=== PATIENT | male | born 1945 | race Caucasian/White ===

== ENCOUNTER 2023-11-29 10:07 | Inpatient (IN) | payer OTHER, SELFPAY ==
[2023-11-29] VITALS (25 sets, daily range): BP systolic 86–136; BP diastolic 55–86; BMI 29.9
--- NOTE | 2023-11-29 07:48 | ED.GENMED ---
History of Present Illness
<Farida Montiel PA-C - Last Filed: 11/29/23 09:18>
General
Chief Complaint: Chest Pain
Source: patient and ambulance crew
Time Seen by Provider: 11/29/23 07:47
History of Present Illness
History of Present Illness:
78yoM with a history of coronary artery disease s/p PCI, ischemic cardiomyopathy, hypertension, and hyperlipidemia presenting via EMS for evaluation of chest pain. Patient started with chest pain about 1 week ago. He reports intermittent central
chest pains which feel like a 'sharp annoying pain.' The pain lasts about 5-10 minutes at a time. The pain seems to occur after eating or if walking up the steps. The pain typically improves with Gas-X. The pain is non-radiating. This morning his
pain occurred while he was sitting and watching TV so he called EMS. He has no chest pain currently. Patient also reports exertional dyspnea which has been ongoing for a while. He is otherwise asymptomatic and denies any fevers, cough, dizziness,
syncope, diaphoresis, nausea, vomiting. He took 324mg of aspirin prior to arrival. Of note, patient had a minimally invasive lumbar decompression procedure 9 days ago.
Past History
<Farida Montiel PA-C - Last Filed: 11/29/23 09:18>
Past History
ED Past Medical History: CAD, HTN, Hypercholesterolemia, [place] and Other (Cardiomyopathy, IBS, cardiomyopathy, left frontal branch block)
ED Past Surgical History: Orthopedic and Other (Cardiac catheter 05/2013)
Social History
Tobacco: Former smoker
Alcohol: None
Drug: None
Family History
Family History: CAD
Phy Exam
<Farida Montiel PA-C - Last Filed: 11/29/23 09:18>
General Physical Exam
General Presentation: well appearing and no apparent distress
General age: appears stated age
General Skin: warm and dry
General Habitus: normal
General Mental: alert
Cardiovascular Exam
Cardiovascular Exam: regular rate/rhythm and no edema
Pulmonary Exam
Pulmonary Exam: lungs clear, no respiratory distress, no rales, no crackles and no wheezing
Philip Coma Scale
Eye Opening: Spontaneous
Verbal Response: Oriented
Motor Response: Obeys Commands
GCS Total Score: 15
Skin Exam
Skin Exam: normal color and warm/dry
Psychiatric Exam
Psychiatric Exam: normal mood/affect
Scores
<Farida Montiel PA-C - Last Filed: 11/29/23 09:18>
Heart Score for Chest Pain Patients
STEMI patient?: Not applicable
Course
<Farida Montiel PA-C - Last Filed: 11/29/23 09:18>
Orders/Labs/Results
Orders:
Orders
11/29/23 07:42
Electrocardiogram (*1) Urgent
Reason for Study: Chest Pain
EKG- Treatment ONCE
11/29/23 07:49
Cardiac Monitoring- Treatment ONCE
CR Chest - 2 Views Urgent
Comment:
Reason For Exam: CP
11/29/23 07:55
CMP [Comprehensive Metabolic Panel] Urgent
Complete Blood Count/With Diff Urgent
D-Dimer Urgent
Lipase Urgent
Troponin I Urgent
11/29/23 08:09
Add On- LAB Urgent
Tests Added?: Lipase
11/29/23 09:11
Heparin 4,000 units IV NOW STA
Pharmacy Request to Place See Dose Instructions PO NOW STA
Discontinue all Active Warfarin orders?: Yes
11/29/23 09:12
PTT Urgent
Comment: Obtain baseline before beginning heparin infusion if not already collected
Nursing to Place Non Medication Order As Directed
Physician Order: PTT 6 hours after initial start of Heparin infusion
11/29/23 09:15
Heparin 20372 Units/250 ml 25,000 units in 250 ml IV PER PROTOCOL
Weight to be used for heparin protocol in kilograms (kg):: 97.1
Protocol:: Cardiac Tx/Acute Coronary
PTT Goal Range to be used:: PTT 73 to 111 seconds
Order type:: Initial
INITIAL Infusion Dose (UNITS/KG/hr) & then follow protocol:: 12 units/kg/hr
Infusion Dose in UNITS/hr & then follow protocol (UNITS/hr):: 1,000
INFUSION RATE in mL/hr & then follow protocol (mL/hr):: 10
PTT less than or equal to 64 seconds:: Increase rate by 200 units/hr (+ 2 mL/hr)
PTT 64.1 to 72.9 seconds:: Increase rate by 100 units/hr (+ 1 mL/hr)
PTT 73 to 111 seconds:: Target Range. No change in rate.
PTT 111.1 to 130.9 seconds:: Decrease rate by 100 units/hr (- 1 mL/hr)
PTT 131 to 199.9 seconds:: HOLD for 1 hr. Then decrease rate by 200 units/hr (- 2 mL/hr)
PTT greater than or equal to 200 seconds:: HOLD for 2 hrs & Notify Provider. Then decrease by 200 units/hr (-
2 mL/hr)
Lab follow-up:: Each change, PTT q6h until 2 consecutive are therapeutic. Then PTT
daily.
11/29/23 10:[address] See Dose Instructions IV DIRECTED
Abnormal Lab Results
11/29/23
07:55
RBC 3.86 L 10^6/uL
(4.70-6.10)
Hct 38.1 L %
(39.0-52.0)
MCV 98.7 H fL
(80.0-94.0)
MCH 35.0 H pg
(27.0-31.0)
Abs Immat Gran (auto) 0.1 H 10^3/uL
(0-0.05)
Absolute Monos (auto) 1.0 H 10^3/uL
(0.1-0.6)
Immature Gran % 0.8 H %
(0-0.5)
Monocytes % 12.5 H %
(1.7-9.3)
Sodium 134 L mmol/L
(135-145)
Glucose 126 H mg/dl
(70-99)
ALT 92 H U/L
(0-50)
Troponin I 0.098 H* ng/ml
Total Protein 6.0 L g/dl
(6.3-8.2)
11/29/23 07:55
11/29/23 07:55
Vital Signs
Initial and Last Documented VS:
Initial Vital Signs
Pulse Resp BP Pulse Ox
69 16 107/66 94
11/29/23 07:43 11/29/23 07:43 11/29/23 07:43 11/29/23 07:43
Last Documented Vital Signs
Pulse Resp BP Pulse Ox
63 14 107/66 98
11/29/23 08:30 11/29/23 08:30 11/29/23 07:43 11/29/23 08:30
<Dewayne Yo MD - Last Filed: 11/29/23 09:15>
Orders/Labs/Results
Orders:
Orders
11/29/23 07:42
Electrocardiogram (*1) Urgent
Reason for Study: Chest Pain
EKG- Treatment ONCE
11/29/23 07:49
Cardiac Monitoring- Treatment ONCE
CR Chest - 2 Views Urgent
Comment:
Reason For Exam: CP
11/29/23 07:55
CMP [Comprehensive Metabolic Panel] Urgent
Complete Blood Count/With Diff Urgent
D-Dimer Urgent
Lipase Urgent
Troponin I Urgent
11/29/23 08:09
Add On- LAB Urgent
Tests Added?: Lipase
11/29/23 09:11
Heparin 4,000 units IV NOW STA
Pharmacy Request to Place See Dose Instructions PO NOW STA
Discontinue all Active Warfarin orders?: Yes
11/29/23 09:12
PTT Urgent
Comment: Obtain baseline before beginning heparin infusion if not already collected
Nursing to Place Non Medication Order As Directed
Physician Order: PTT 6 hours after initial start of Heparin infusion
11/29/23 09:15
Heparin [id number] Units/250 ml 25,000 units in 250 ml IV PER PROTOCOL
Weight to be used for heparin protocol in kilograms (kg):: 97.1
Protocol:: Cardiac Tx/Acute Coronary
PTT Goal Range to be used:: PTT 73 to 111 seconds
Order type:: Initial
INITIAL Infusion Dose (UNITS/KG/hr) & then follow protocol:: 12 units/kg/hr
Infusion Dose in UNITS/hr & then follow protocol (UNITS/hr):: 1,000
INFUSION RATE in mL/hr & then follow protocol (mL/hr):: 10
PTT less than or equal to 64 seconds:: Increase rate by 200 units/hr (+ 2 mL/hr)
PTT 64.1 to 72.9 seconds:: Increase rate by 100 units/hr (+ 1 mL/hr)
PTT 73 to 111 seconds:: Target Range. No change in rate.
PTT 111.1 to 130.9 seconds:: Decrease rate by 100 units/hr (- 1 mL/hr)
PTT 131 to 199.9 seconds:: HOLD for 1 hr. Then decrease rate by 200 units/hr (- 2 mL/hr)
PTT greater than or equal to 200 seconds:: HOLD for 2 hrs & Notify Provider. Then decrease by 200 units/hr (-
2 mL/hr)
Lab follow-up:: Each change, PTT q6h until 2 consecutive are therapeutic. Then PTT
daily.
11/29/23 10:[address] See Dose Instructions IV DIRECTED
Abnormal Lab Results
11/29/23
07:55
RBC 3.86 L 10^6/uL
(4.70-6.10)
Hct 38.1 L %
(39.0-52.0)
MCV 98.7 H fL
(80.0-94.0)
MCH 35.0 H pg
(27.0-31.0)
Abs Immat Gran (auto) 0.1 H 10^3/uL
(0-0.05)
Absolute Monos (auto) 1.0 H 10^3/uL
(0.1-0.6)
Immature Gran % 0.8 H %
(0-0.5)
Monocytes % 12.5 H %
(1.7-9.3)
Sodium 134 L mmol/L
(135-145)
Glucose 126 H mg/dl
(70-99)
ALT 92 H U/L
(0-50)
Troponin I 0.098 H* ng/ml
Total Protein 6.0 L g/dl
(6.3-8.2)
11/29/23 07:55
11/29/23 07:55
Vital Signs
Initial and Last Documented VS:
Initial Vital Signs
Pulse Resp BP Pulse Ox
69 16 107/66 94
11/29/23 07:43 11/29/23 07:43 11/29/23 07:43 11/29/23 07:43
Last Documented Vital Signs
Pulse Resp BP Pulse Ox
63 14 107/66 98
11/29/23 08:30 11/29/23 08:30 11/29/23 07:43 11/29/23 08:30
Ashleylt;Farida Montiel PA-C - Last Filed: 11/29/23 09:18>
MDM/Problems Addressed
Differential Diagnosis Includes:
78yoM here with intermittent central chest pain x 5 days. No pain on arrival. Otherwise asymptomatic on arrival. Hx of CAD s/p PCI. He is hemodynamically stable and well appearing. Exam is reassuring. Differential diagnosis includes but is not
limited to: ACS, angina, arrhythmia, pneumonia, PE, esophagitis, GERD
Initial ED place: Place on [facility]. Check cardiac labs, D-dimer, EKG, and CXR.
<Farida Montiel PA-C - Last Filed: 11/29/23 09:18>
*EKG
Interpreted by ED Provider?: Yes
EKG Intrepretation Date: 11/29/23
EKG Intrepretation Time: 07:53
Heart Rate: 67
Rate: normal
Rhythm: sinus
[place]: left axis deviation (Unchanged from prior)
QRS Pattern: left bundle branch block
Ischemia: no ischemia
*Critical Care Note
Total Time (30-74mins, 75-104mins- exclusive of procedures): Not Applicable
<Farida Montiel PA-C - Last Filed: 11/29/23 09:18>
Update Note
Update Note:
EKG shows NSR with a LBBB which was also present on prior EKG. Troponin 0.098. D-dimer normal and CXR is clear. Heparin gtt ordered and workforce planner, Dr. Thomas, notified of patient. Patient admitted for further evaluation and management.
ED Attending Note
<Farida Montiel PA-C - Last Filed: 11/29/23 09:18>
-
Portions of this chart may have been created with voice recognition software.� Occasional wrong word or��sound alike� substitutions may have occurred due to the inherent limitations of voice recognition software.
<Dewayne Yo MD - Last Filed: 11/29/23 09:15>
ED Attending Note
Patient seen and examined by attending physician: Yes
ED Attending Note:
Patient with history of CAD, with most recent cardiac stent placement in 2020, presents to ED secondary to intermittent chest pain over the past 3 days. Chest pain described as sharp, in the middle of chest, nonradiating, without any alleviating or
exacerbating factors. Patient has taken aspirin prior to arrival. At the time of evaluation ED, patient states that his chest pain is resolved completely. Denies fever or chills. Denies recent travel or surgery. Denies recent change in
medications or diet. Patient states that his chest pain is similar to what he experienced in 2020.
Physical Exam
General: no apparent distress, not acutely ill
Neck: supple. no meningeal signs. normal psoterior pharynx
Heart: s1/s2 regular rate and rhythm, no murmur. equal radial pulses.
Lungs: no acute respiratory distress. clear bilaterally
Abdomen: normal bowel sounds. not tender. no CVAT
Neuro: alert and oriented. no focal neurological deficits
Skin: no rash
Psychiatric: well kept. interactive and cooperative
Extremities: no edema. no calf tenderness. negative homans. good distal pulses
History and exam concerning for unstable angina. Cardiology, Dr. Thomas, contacted via [place] text. Patient will be started heparin protocol and admitted for further evaluation and treatment.
Discharge Plan
Departure
Patient Disposition: Admit
Date of Disposition: 11/29/23
Time of Disposition: 09:11
Presentation/result/management discussed w/ accepting MD/DO: Hospitalist
Discharge Problem:
Chest pain, Elevated troponin
Prescriptions:
No Action
spironolactone 25 MG tablet
25 mg PO DAILY
rosuvastatin [Crestor] 40 MG tablet
40 mg PO QPM
cholecalciferol (vitamin D3) 1,000 UNITS tablet
1,000 units PO DAILY
multivitamin with folic acid [Tab-A-Junie] 1 TABLET tablet
1 tab PO DAILY
carvedilol 12.5 MG tablet
12.5 mg PO BID
aspirin 81 MG tablet,delayed release (/EC)
81 mg PO DAILY
acetaminophen [Tylenol] 325 mg Tablet
650 mg PO Q4HPRN PRN (Reason: mild pain)
tramadol 50 mg Tablet
50 mg PO BIDPRN PRN (Reason: moderate pains)
ascorbic acid (vitamin C) [Vitamin C] 500 mg Tablet
500 mg PO DAILY
Entresto 97-103 mg Tablet
1 tab PO BID
Referrals:
Gui Hanks MD [Family Provider] -
Interventions
Interventions:
*Risk Screen - Suicide Last Done: 11/29/23 07:43
*General Assessment Last Done: 11/29/23 07:43
*Neglect/Abuse Screening Last Done: 11/29/23 07:43
ED- Fall Risk Assessment Last Done: 11/29/23 07:43
ED- Cardiac Assessment Last Done: 11/29/23 07:59
Discharge Date and Time
Print Language: [place]
[2023-11-29 08:13] LABS: % Basophils 0.1 % (0-2); % Eosinophils 0.9 % (0-6); % Immature Granulocytes 0.8 % (0-0.5); % Lymphocytes 26.3 % (20.5-51.1); % Monocytes 12.5 % (1.7-9.3); % Neutrophils 59.4 % (42.2-75.2); Absolute Eosinophils 0.1 10^3/uL (0-0.7); Absolute Immature Granulocytes 0.1 10^3/uL (0-0.05); Absolute Neutrophils 4.6 10^3/uL (1.4-6.5); Hematocrit 38.1 % (39.0-52.0); Hemoglobin 13.5 g/dL (13.0-18.0); Mean Corp Hgb Conc. 35.4 g/dL (33.0-37.0); Mean Corpuscular Volume 98.7 fL (80.0-94.0); Mean Platelet Volume 9.3 fL (7.4-10.4); Nucleated Red Blood Cells % 0 % (-); Platelet Count 221 10^3/uL (130-400); Red Blood Cell Count 3.86 10^6/uL (4.70-6.10); White Blood Cell Count 7.7 10^3/uL (4.8-10.8)
[2023-11-29 08:27] LABS: ALT (SGPT) 92 U/L (0-50); AST (SGOT) 37 U/L (17-59); Albumin 3.9 g/dl (3.5-5.0); Alkaline Phosphatase 61 U/L (38-126); Blood Urea Nitrogen 20 mg/dl (9-20); Calcium 9.8 mg/dl (8.4-10.2); Carbon Dioxide 25 mmol/L (22-30); Chloride 101 mmol/L (98-107); Glucose 126 mg/dl (70-99); Potassium 4.5 mmol/L (3.5-5.1); Sodium 134 mmol/L (135-145); Total Bilirubin 0.5 mg/dl (0.2-1.3); eGFR > 60.00
[2023-11-29 08:41] LABS: Troponin I 0.098 ng/ml
[2023-11-29 09:00] LABS: Lipase 122 U/L (23-300)
--- NOTE | 2023-11-29 09:46 | HPS.HSE ---
Family Physician
-
Family Physician: Gui Hanks
Chief Complaint
-
Chest pain
History of Present Illness
Patient is a 78-year-old male with past medical history of coronary disease status post circumflex BERTA placement, hyperlipidemia, essential hypertension, lumbar spinal stenosis status post minimally invasive laminectomy recently came to ER with
ongoing sternal chest pain. Patient started noticing nonradiating sternal dull chest pain for last 1 week. No correlation with exertional and yesterday patient was resting when started to having this. No associated diaphoresis/nausea/shortness of
breath. Patient does have some exertional dyspnea which patient attributes to lower extremity weakness secondary to spinal issues and Zetia related complications. Patient had a heart cath in when patient was diagnosed to having ischemic
cardiomyopathy and required left circumflex stenting with BERTA x 2. After that patient has been follow-up with cardiology in office and no further intervention has been required. Patient has been compliant with home medication therapy.
Medical History
Past Medical History
Past Medical History: Reports Other
Additional Past Medical History:
coronary disease status post circumflex BERTA placement, hyperlipidemia, essential hypertension, lumbar spinal stenosis status post minimally invasive laminectomy
Past Surgical History: Reports Other
Social History
Tobacco: Non-smoker
Alcohol: None
Drug: None
Living: With Family
Family History
Family History: Not pertinent
Allergies / Home Medications
Allergies reflects when Allergies were last updated in [facility].
Home Medications with original date entered in [facility]
Allergy/Medication List:
Allergies
Allergy/AdvReac Type Severity Reaction Status Date / Time
azithromycin Allergy VOMIT Verified 02/08/21 05:13
gadobutrol [From Gadavist] Allergy Pt denies Verified 02/08/21 05:13
NSAIDS (Non-Steroidal Allergy ITCHY Verified 02/08/21 05:13
Anti-Inflamma
oxycodone [Oxycodone] Allergy Itching Verified 02/08/21 05:13
propoxyphene Allergy ITCH Verified 02/08/21 05:13
sildenafil Allergy Unknown Verified 02/08/21 05:13
acetaminophen [From Tylenol] AdvReac ITCHY Verified 02/08/21 05:13
Home Medications
aspirin 81 mg tablet,delayed release 81 mg PO DAILY Blood clot prevention/tx 02/08/21
carvedilol 12.5 mg tablet 12.5 mg PO BID Heart disease/condition 02/08/21
cholecalciferol (vitamin D3) 25 mcg (1,000 unit) tablet 1,000 units PO DAILY Supplement 02/08/21
multivitamin with folic acid 400 mcg tablet (Tab-A-Junie) 1 tab PO DAILY Supplement 02/08/21
rosuvastatin 40 mg tablet (Crestor) 40 mg PO QPM High cholesterol 02/08/21
spironolactone 25 mg tablet 25 mg PO DAILY Blood pressure 02/08/21
acetaminophen 325 mg tablet (Tylenol) 650 mg PO Q4HPRN PRN mild pain 11/29/23
ascorbic acid (vitamin C) 500 mg tablet (Vitamin C) 500 mg PO DAILY 11/29/23
sacubitril 97 mg-valsartan 103 mg tablet (Entresto) 1 tab PO BID 11/29/23
tramadol 50 mg tablet 50 mg PO BIDPRN PRN moderate pains 11/29/23
Review of Systems
-
A 12 point ROS was completed and negative except as noted: Yes
Physical Exam
Vital Signs
Vital Signs
Pulse Resp BP Pulse Ox
60 16 122/86 98
11/29/23 09:30 11/29/23 09:30 11/29/23 09:12 11/29/23 09:30
Physical Exam
General: Well Developed, Well Nourished and No Apparent Distress
HEENT: NormoCephalic, Moist mucous membranes and Atraumatic
Respiratory: Clear
Cardiac: S1/S2 and Regular Rhythm; No Murmur or Rub
GI: Soft, Non Tender, Non Distended and Normal Bowel Sounds; No Organomegaly
Rectal: Deferred by Provider
Musculoskeletal: No Clubbing, No Cyanosis and No Edema
Skin: Other (Diffuse echymosis of LE); No Rash
Neuro: Nonfocal/grossly intact
Laboratory Results
-
11/29/23 07:55
11/29/23 07:55
Laboratory Results
Total Bilirubin 0.5 mg/dl (0.2-1.3) 11/29/23 07:55
AST 37 U/L (17-59) 11/29/23 07:55
ALT 92 U/L (0-50) H 11/29/23 07:55
Alkaline Phosphatase 61 U/L (38-126) 11/29/23 07:55
Troponin I 0.098 ng/ml H* 11/29/23 07:55
Lipase 122 U/L (23-300) 11/29/23 07:55
Data Reviewed
-
Lab Data: Labs Reviewed by me and Discussed with Family
Impression/Plan
-
1. Chest pain
Presumed unstable angina
h/o CAD s/p circumflex DESx2
-Patient having episodic chest pain at rest for last 1 week
-Minimal troponin elevation of 0.098, f/u trop ordered
-Patient have history of coronary disease with circumflex stenting in the past
-EKG reviewed no major ST segment/T wave changes
-Patient was loaded on aspirin 325 mg by EMS, continue aspirin 81mg/d
-Patient started on heparin drip to be continued
-Cardiology involved in care was planning to take patient to [facility]
2. Ischemic cardiomyopathy
HFmrEF
Left bundle branch block
-Echocardiogram in June 28 showing EF of 45 to 50%.
-Patient not on diuretics, no signs of volume overload
3. Hyperlipidemia
-maintain on crestor home dose
4. Essential hypertension
-continue coreg with holding parameter
-Hold Entresto/Aldactone with need of contrast study. monitor renal function before resumption
lumbar spinal stenosis status post minimally invasive laminectomy
DVT PPX - heparin drip
Full code
Total time spent : 77 mins
I personally saw and examined the patient.
I have reviewed all diagnostic interpretations and treatment plans as written.
Time includes patient management by me, time spent at the patients bedside, time to review lab and imaging results, discussing patient care, documentation in the medical record, and time spent with the family or caregiver and discussing care plan
with RN/Consultants.
[2023-11-29] MEDS: HEPARIN 4000 UNITS IV (09:47)
[2023-11-29] MEDS: HEPARIN 25000 UNITS/250 ML IV (09:58)
[2023-11-29 09:59] LABS: APTT 24.3 Sec (23.4-35.0)
--- NOTE | 2023-11-29 10:12 | CON.CAR ---
Addendum entered and electronically signed by Perfecto Thomas MD 11/29/23 11:30:
78 yo male with CAD, prior LAD stenting in , then Lcx stenting in 2020 in setting of NM, ICM EF 45%, LBBB is admitted with chest pain. Progressive over last week. This AM felt similar to NM in 2020. Exam with RRR, no murmurs, no edema. EKG:
NSR, LBBB. TnI 0.098.
ACS/NSTEMI. ASA 325mg, heparin drip. Cath and echo today.
Original Note:
Consultation
Consultation Request
Date/Time Consultation Requested: 11/29/23 9a
Date/Time Consultation Performed: 11/29/23 9:45a
Requesting Provider: Farida Montiel PA-C
Performing Provider: ELANA Rehman for Dr. Thomas
Reason for Consultation: chest pain
Medical History
-
Chief Complaint: chest pain
History of Present Illness:
Mr. Lambert is a 78 yo male with ICM 45-50%, CAD (PCI BERTA pLAD, mid Cx, ostial Cx 02/2021, residual 40% pRCA, 70% dRCA), HTN, LBBB, HLD, spinal stenosis and obesity, who presents to the ER with c/o midsternal chest pain that began 1 week ago. He had
a MILD procedure 11/20/23 then he c/o chest pain several days later. Chest pain occurs 10 mins after walking up the stairs and after eating. Pain is worse with lying down in bed as well, improves with sitting upright and walking. There is
associated fatigue, belching, gas and leg weakness (chronic). He states in August 2023 he started on Zetia 10mg because LDL was 101 and after one week he developed 'all the side effects' especially leg weakness/myalgias, so he stopped it. Initial
troponin 0.098, EKG NSR 67 bpm with LBBB.
Past Medical History
Past Medical History: Other (as above)
Social History
Tobacco: Former Smoker
Alcohol: None
Living: Alone
Employment: Retired
Family History
Family History: CAD (mother NM age 72) and Other (father stroke 57)
Allergies / Home Medications
Allergy/AdvReac Type Severity Reaction Status Date / Time
azithromycin Allergy VOMIT Verified 02/08/21 05:13
gadobutrol [From Gadavist] Allergy Pt denies Verified 02/08/21 05:13
NSAIDS (Non-Steroidal Allergy ITCHY Verified 02/08/21 05:13
Anti-Inflamma
oxycodone [Oxycodone] Allergy Itching Verified 02/08/21 05:13
propoxyphene Allergy ITCH Verified 02/08/21 05:13
sildenafil Allergy Unknown Verified 02/08/21 05:13
acetaminophen [From Tylenol] AdvReac ITCHY Verified 02/08/21 05:13
�Medication �Instructions �Recorded �Confirmed �Type
aspirin 81 mg tablet,delayed 81 mg PO DAILY Blood clot 02/08/21 11/29/23 History
release prevention/tx
carvedilol 12.5 mg tablet 12.5 mg PO BID Heart 02/08/21 11/29/23 History
disease/condition
cholecalciferol (vitamin D3) 25 1,000 units PO DAILY Supplement 02/08/21 11/29/23 History
mcg (1,000 unit) tablet
multivitamin with folic acid 400 1 tab PO DAILY Supplement 02/08/21 11/29/23 History
mcg tablet (Tab-A-Junie)
rosuvastatin 40 mg tablet (Crestor) 40 mg PO QPM High cholesterol 02/08/21 11/29/23 History
spironolactone 25 mg tablet 25 mg PO DAILY Blood pressure 02/08/21 11/29/23 History
acetaminophen 325 mg tablet 650 mg PO Q4HPRN PRN mild pain 11/29/23 11/29/23 History
(Tylenol)
ascorbic acid (vitamin C) 500 mg 500 mg PO DAILY 11/29/23 11/29/23 History
tablet (Vitamin C)
sacubitril 97 mg-valsartan 103 mg 1 tab PO BID 11/29/23 11/29/23 History
tablet (Entresto)
tramadol 50 mg tablet 50 mg PO BIDPRN PRN moderate pains 11/29/23 11/29/23 History
Review of Systems
-
History Source: Patient
All other systems: Negative unless noted
Physical Exam
Vital Signs
Pulse Resp BP Pulse Ox
60 16 122/86 98
11/29/23 09:30 11/29/23 09:30 11/29/23 09:12 11/29/23 09:30
Lab Results
11/29/23 07:55
11/29/23 07:55
Troponin I 0.098 ng/ml H* 11/29/23 07:55
Physical Exam
General: Well Developed, Well Nourished and No Apparent Distress
HEENT: Normocephalic, Anicteric and Moist Mucous Membranes
Respiratory: Clear and Non Labored Respirations
Cardiac: S1/S2 and Regular Rhythm
Breast: Deferred by me
GI: Soft, Non Tender, Non Distended and Normal Bowel Sounds
Rectal: Deferred by Provider
Genito-urinary: No Costovertebral Tender
Musculoskeletal: No Clubbing, No Cyanosis and No Edema
Skin: Warm
Neuro: AO x 3
Hematologic/Lymphatic: No Lymphadenopathy
Psych: Calm
Impression / Plan
-
NSTEMI - intermittent chest pain x 5 days.
- initial troponin 0.098, trend to peak.
- EKG with NSR, LBBB.
- known 70% distal RCA lesion from cath 2020.
- Lexiscan 10/2021 with normal perfusion.
- high pre-test probability, plan for C today.
- ASA, IV Heparin.
ICM - EF 45-50% on echo 06/2022.
- no HF on exam.
- update echo.
- continue GDMT.
HTN - stable on medical therapy, continue.
HLD - on Crestor.
- LDL 101 in July 2023.
- did not tolerate Zetia.
- will need to consider PCSK9i as outpatient since LDL goal is < 55.
Spinal stenosis - stable, s/p MILD procedure 11/20/23.
Data Reviewed
-
EKG: Tracing Personally Visualized and interpreted (NSR 67 bpm, LBBB)
Radiology: Report Reviewed by me (NAD)
Medical Tests (Nuc Med, Echo etc): Other (cath and echo as above)
Labs: Labs Reviewed by me
Old Records: Reviewed
[2023-11-29] MEDS: TYLENOL 650 MG PO (13:31)
[2023-11-29] MEDS: COREG PO (13:35)
[2023-11-29 14:14] LABS: Troponin I 0.101 ng/ml
--- NOTE | 2023-11-29 16:02 | CARDSERVLU ---
Echocardiogram with [facility] completed after protocol screening completed. Allergies verified.
Patent IV site: _Rt AC___
IV site flushed with 0.9% NaCl pre and post administration.
Diluted bolus method utilized to enhance visualization of ventricular aguilera.
Total volume given: __6.0_ mL
Patient tolerated all procedures well without complications.
--- NOTE | 2023-11-29 16:48 | CM ---
Addendum entered by Taty Wislon 11/29/23 16:54:
He is in the coverage gap.
Original Note:
Priced Brilinta 90 mg po bid with his insurance. Brilib-nta for a 30 day supply is $108.31 and 90 day supply mail order is $301.32. Telephone call to [facility] and they have one bottle of 60 in stock.
[2023-11-29 17:31] LABS: ACT-LR - POC 292 Seconds (116-155)
[2023-11-29 17:57] LABS: ACT-LR - POC 285 Seconds (116-155)
[2023-11-29 18:24] LABS: ACT-LR - POC 266 Seconds (116-155)
[2023-11-29] MEDS: NSS 1000 IV (20:06)
[2023-11-29 20:54] LABS: Hematocrit 36.6 % (39.0-52.0); Hemoglobin 13.1 g/dL (13.0-18.0); Mean Corp Hgb Conc. 35.8 g/dL (33.0-37.0); Mean Corpuscular Hgb 35.3 pg (27.0-31.0); Mean Corpuscular Volume 98.7 fL (80.0-94.0); Mean Platelet Volume 9.2 fL (7.4-10.4); Platelet Count 189 10^3/uL (130-400); Red Blood Cell Count 3.71 10^6/uL (4.70-6.10); White Blood Cell Count 8.7 10^3/uL (4.8-10.8)
--- NOTE | 2023-11-29 21:20 | PTCARENOTE ---
Received patient at 1940 from photo lab specialist. Awake, alert, and oriented. BP 95/56, Sinus rhythm 70s-80s with BBBC, 96% on room air. Radial and pedal pulses weak, but palpable. Radial site intact with radial band-- 12cc of air. Dr. Bridges bedside. Verbal
order to stop integrilin one hour after Brilinta. Brilinta given at 1926 in photo lab specialist-- Integrilin stopped at 2029. Heparin drip ordered and placed by . Patient agrees to notify care team with any chest pain. Call castillo within reach.
--- NOTE | 2023-11-29 21:21 | PTCARENOTE ---
Patient urinated 175mL of dark red blood at 2100. Reached out to Dr. Milton. Per , delay heparin drip for 6 hours after band is removed-- no bolus.
[2023-11-29 22:07] LABS: APTT > 200 Sec (23.4-35.0)
--- NOTE | 2023-11-29 22:16 | ITS.CL.ANGIO ---
[employer] - Angioplasty
Angioplasty
Procedure Report:
CARDIAC CATHETERIZATION REPORT
Date of Procedure: 11/29/2023
Referring: Dr. Isaiah Thomas
Indication: NSTEMI
PROCEDURE:
1. Left heart catheterization
2. Coronary angiography
3. iFR of LAD
4. iFR of LCx
5. PCI to the proximal RCA with drug-eluting stent
ACCESS:
6 [place] right radial artery (not unable to full advance sheath due to likely spiculated calcium, recommend left radial or groin access for future cath procedures)
CATHETERS:
5 [place] JR 4 diagnostic
5 [place] JL 3.5 diagnostic
6 [place] XB 3.5 guide catheter
6 [place] JR 4 guide catheter
6 [place] AL 0.75 guide catheter
HEMODYNAMIC DATA (mmHg)
LV 124/11 (EDP 16)
AO 122/70 (mean 92)
CORONARY ANGIOGRAPHY
Dominance: right
LM: large vessel with mild distal tapering
LAD: large vessel that gives rise to one moderate-caliber marginal branch. There are stents in the proximal to mid-vessel, there is moderate ISR in the ostial LAD stent that was evaluted with iFR, and mild ISR in the mid-vessel stented segment.
LCx: large vessel giving rise to several small marginal branches. There is a moderate caliber marginal branch that is a known CONTINUOUS IMPROVEMENT ENGINEER and fills via [id number] collaterals from the LAD. There are stents in the ostial and mid vessel. The ostial stent
has moderate ISR that was evaluated with iFR.
RCA: large vessel giving rise to a large RPDA and large RPL system. There is a hazy 80% stenosis in the proximal vessel and 90% hazy stenosis in the distal RCA that are both progressed from prior angiography.
iFR to LCx and LAD ostium
The decision was made to evaluate iFR of the LCx and LAD to determine if, giving progressive RCA disease, surgical revascularization might be indicated for multivessel disease. The LCx and LAD were evaluated with iFR. After flushing and zeroing the
Veratta pressure wire, it was advanced to the left main where the catheter was flushed and normalization performed. iFR was then measured in the ostial LCx and ostial LAD. Both were negative - 0.98 LCx, 0.98 LAD. Thus, decision was made to proceed
with stenting of the RCA.
PCI to RCA with BERTA
While completing the iFR measurements described, the patient began experiencing chest pain that worsened progressively. Angiography demonstrated no new occlusion in the left coronary system. With haste, the XB guide catheter was removed and replaced
with a JR4 guide catheter which demonstrated proximal thrombotic total occlusion of the vessel. After rapid placement of a Runthrough coronary wire in the distal RCA, a 2.5x12 mm balloon was advanced and used to balloon the area of occlusion,
re-establishing forward flow. Etiology of the loss of flow was not clear, but there was possible angiographic evidence of dissection. Because of the high degree of tortuosity in the vessel, stent delivery was challenging even with use of balloon
assisted tracking and balloon anchoring techniques with a 6F guideliner. Ultimately, wire position was lost and the guide was exchanged for a AL 0.75. This allowed delivery of a 3.0 NC balloon to the area of most severe stenosis and subsequent
guideliner facilitated delivery of an Bennett 3.5x34 mm BERTA deployed at 16 mimi. There was mild residual under-expansion in the mid-stent but an otherwise excellent result with NACHO 3 flow distally and no evidence of dissection. Post-dilation was
attempted but given the vessel tortuosity delivery proved difficult, and instead, we opted to fix the distal RCA first with plan to perform all post-dilation at the end. Again, tortuosity made delivery of equipment to the distal vessel challenging.
The Runthrough wire was swapped for a Whisper wire which was able to cross the distal lesion (confirmed to be true lumen by side branch entry). Unfortunately, a 2.0 balloon could not be delivered, resulting in loss of equipment including the wire.
Angiography demonstrated NACHO 3 flow in the distal vessel and the patient was asymptomatic. Given significant time, contrast, and radiation usage, the decisions was made to stage the distal lesion. The wire and guide were removed and a TR band
placed. The patient was given ticagrelor 180 mm and taken to the cath recovery unit in stable condition.
Closure Device: TR band
CONCLUSIONS/RECCOMENDATIONS:
1. Obstructive coronary artery disease in a right dominant system, with non-obstructive ISR in the LAD and LCx and high grade lesions in the proximal and distal RCA.
2. Mildly elevated LV filling pressure and no aortic stenosis on pullback.
3. Plan for staged intervention to the distal RCA via femoral access on 12/02/23.
4. Continue DAPT with ASA/ticag, heparin drip. Make NPO after MN 12/01/23.
5. If patient experiences new chest pain, performed ECG and discuss emergently with cardiology / interventional
6. As outpatient, will need aggressive secondary risk modification including anti-lipid therapy for goal <55.
7. Follow up with Dr. Moreira
Copy to: Dr. Guy Moreira MD
Signed: Mikey Bridges MD, PhD
[2023-11-29] MEDS: COREG 12.5 MG PO (22:19)
[2023-11-29] MEDS: CRESTOR 40 MG PO (22:19)
--- NOTE | 2023-11-29 23:11 | PTCARENOTE ---
Previously patient was in laboratory coordinator and received heparin. PTT resulted >200. Notified Mar Dhillon NP. Heparin being held for 6 hours post radial band removal per Dr. Milton due to bloody urine. PTT will be redrawn prior to starting heparin.
[2023-11-30] VITALS (23 sets, daily range): BP systolic 79–121; BP diastolic 53–74; BMI 29.4
[2023-11-30] MEDS: MELATONIN 5 MG PO ×2 (00:14→21:51)
[2023-11-30] MEDS: TYLENOL 650 MG PO ×3 (01:07→13:18)
[2023-11-30 02:57] LABS: ACT-LR - POC 347 Seconds (116-155)
[2023-11-30 03:00] LABS: Hematocrit 32.9 % (39.0-52.0); Hemoglobin 11.7 g/dL (13.0-18.0); Mean Corp Hgb Conc. 35.6 g/dL (33.0-37.0); Mean Corpuscular Hgb 34.8 pg (27.0-31.0); Mean Corpuscular Volume 97.9 fL (80.0-94.0); Mean Platelet Volume 9.4 fL (7.4-10.4); Platelet Count 182 10^3/uL (130-400); Red Blood Cell Count 3.36 10^6/uL (4.70-6.10); Red Cell Dist. Width 13.1 % (11.5-14.5); White Blood Cell Count 10.2 10^3/uL (4.8-10.8)
--- NOTE | 2023-11-30 03:05 | PTCARENOTE ---
Addendum entered by Garth Delgado RN 11/30/23 06:25:
improved bp-116/69; 121/74. patient complaining of a headache-tylenol given, see mar. patient continues to urinate bloody urine. this morning, urine more orange/red. denies any pain with urination/denies abdominal pain. patient states intermittent
chest pain-2/10. educated patient to inform RN with any new changes.
Right radial band at 0130; restart heparin gtt at 0730.
Original Note:
patient called RN c/o not being able to sleep due to chest pain. patient states pain 'comes and goes.' patient states 4/10 L chest pain, non radiating. patient states it has not gotten worse since cardiac cath. AM EKG completed. AM labs sent. while
in the room and talking to patient, patient then states that the chest pain is gone. 'it has subsided.' HR SR 70s. low blood pressures- 79/55, 83/53. patient denies any lightheadedness/dizziness. updated Mar Dhillon BEAUTY ARTIST. dose of midodrine
ordered per BEAUTY ARTIST, see mar.
[2023-11-30 03:12] LABS: Blood Urea Nitrogen 23 mg/dl (9-20); Calcium 8.9 mg/dl (8.4-10.2); Carbon Dioxide 22 mmol/L (22-30); Chloride 103 mmol/L (98-107); Estimated Creatinine Clearance 91 ml/min; Glucose 161 mg/dl (70-99); Potassium 4.1 mmol/L (3.5-5.1); Sodium 133 mmol/L (135-145); eGFR > 60.00
[2023-11-30] MEDS: ProAmatine 5 MG PO (03:14)
[2023-11-30 06:40] LABS: APTT 25.6 Sec (23.4-35.0)
[2023-11-30] MEDS: VITAMIN C 500 MG PO (08:31)
[2023-11-30] MEDS: VITAMIN D3 (cholecalciferol) 25 MCG PO (08:31)
[2023-11-30] MEDS: BRILINTA 90 MG PO ×2 (08:31→19:37)
[2023-11-30] MEDS: ASPIR LOW (ENTERIC COATED) 81 MG PO (08:32)
[2023-11-30] MEDS: THERAGRAN 1 TABLET PO (08:32)
[2023-11-30] MEDS: COREG 12.5 MG PO ×2 (08:32→19:37)
[2023-11-30] MEDS: HEPARIN 25000 UNITS/250 ML IV (08:50)
--- NOTE | 2023-11-30 08:58 | W.PN.HOSP.TC ---
Today's Communication/Plan
-
see note
Assessment / Plan
Assessment / Plan
[facility] summary 11/28
1. Obstructive coronary artery disease in a right dominant system, with non-obstructive ISR in the LAD and LCx and high grade lesions in the proximal and distal RCA.
2. Mildly elevated LV filling pressure and no aortic stenosis on pullback.

1. Chest pain
Presumed unstable angina
h/o CAD s/p circumflex DESx2
-Patient having episodic chest pain at rest for last 1 week
-Minimal troponin elevation of 0.098, f/u trop ordered
-Patient have history of coronary disease with circumflex stenting in the past
-EKG reviewed no major ST segment/T wave changes
-Patient was loaded on aspirin 325 mg by EMS, continue aspirin 81mg/d
-Brilanta and heparin drip to be continued
-[facility] report summary as above and patient is planned to undergo stage yao repeat PCI intervention on 12/01
-Emergent re-cath if any clinical concern of worsening ACS.
2. Ischemic cardiomyopathy
HFmrEF
Left bundle branch block
-Echocardiogram in June 28 showing EF of 45 to 50%.
-Patient not on diuretics, no signs of volume overload
3. Hyperlipidemia
-maintain on Crestor home dose
4. Essential hypertension
-continue coreg with holding parameter
-Hold Entresto/Aldactone with need of contrast study. monitor renal function before resumption
5. Hematuria
-episode of elaine blood in urine last night, in morning tea colored urine
-Likely with need of DAPT/Heparin drip
-Denies h/o of BPH/Bladder issues in the past
-Monitor for any signs of retention/recurrence and will need chopra catheter
lumbar spinal stenosis status post minimally invasive laminectomy
DVT PPX - heparin drip
Full code
Total time spent : 52 mins
Anticipated Discharge: 24 - 48 hours
Subjective/Interval History
-
Date of Service: November 30, 2023
episode of elaine hematuria last night
now resolved with tea color urine now
no retention issues
denies lower abd pain/discomfort
afebrile in night
Objective Data
-
Labs:
Laboratory Results
11/29/23 11/30/23 11/30/23
20:47 02:41 06:07
WBC 10.2
Hgb 11.7 L
Hct 32.9 L
Plt Count 182
APTT > 200 H* 25.6
Sodium 133 L
Potassium 4.1
Chloride 103
Carbon Dioxide 22
BUN 23 H
Creatinine 0.7
Glucose 161 H
Calcium 8.9
11/30/23
14:30
WBC
Hgb
Hct
Plt Count
APTT Pending
Sodium
Potassium
Chloride
Carbon Dioxide
BUN
Creatinine
Glucose
Calcium
Vital Signs:
Vital Signs
Temp Pulse Resp BP Pulse Ox
97.7 F 66 18 105/71 97
11/30/23 07:00 11/30/23 08:32 11/30/23 07:00 11/30/23 08:32 11/30/23 07:00
I&O
11/29/23 11/30/23 12/01/23
06:59 06:59 06:59
Intake Total 730 / 730
Output Total 425 / 425
Balance 305 / 305
Review of Systems
-
Respiratory: Reports No Symptoms
Cardiac: Reports No Symptoms
Abdomen/GI: Reports No Symptoms
Genitourinary: Reports Bleeding
Physical Exam
-
General: No Apparent Distress and Comfortable
HEENT: Negative Oxygen
Respiratory: Clear to Auscultation
Cardiac: Regular Rhythm and S1/S2; Negative Murmur or Rub
GI: Soft, Nontender and Nondistended
Musculoskeletal: No Edema and Other (Right wrist cath access site, echymosis, palpable pulse)
Neuro: Awake, Alert, Oriented, No Motor Deficits and Nonfocal/Grossly Intact
Psych: Calm
--- NOTE | 2023-11-30 09:40 | W.PN.CD ---
Today's Communication / Plan
-
-Continue heparin, aspirin, ticagrelor
-Plan for PCI on Saturday n.p.o. after Saturday night
Impression / Plan
-
NSTEMI - intermittent chest pain x 5 days.
- initial troponin 0.098, trend to peak.
- EKG with NSR, LBBB.
- known 70% distal RCA lesion from cath 2020.
- Lexiscan 10/2021 with normal perfusion.
- high pre-test probability,
- s/p C 11/28/23 - PTCA to RCA
- Plan for staged intervention to the distal RCA via femoral access on 12/02/23.
- Continue DAPT with ASA/ticag, heparin drip
ICM - EF 45-50% on echo 06/2022.
- no HF on exam.
- update echo.
- continue GDMT.
HTN - stable on medical therapy, continue.
HLD - on Crestor.
- LDL 101 in July 2023.
- did not tolerate Zetia.
- will need to consider PCSK9i as outpatient since LDL goal is < 55.
Spinal stenosis - stable, s/p MILD procedure 11/20/23.
Physical Exam
Vital Signs/Labs
Vital Signs
Temp Pulse Resp BP Pulse Ox
97.7 F 66 18 105/71 97
11/30/23 07:00 11/30/23 08:32 11/30/23 07:00 11/30/23 08:32 11/30/23 07:00
11/29/23 11/30/23 12/01/23
06:59 06:59 06:59
Actual Weight 95.7 kg
11/30/23 02:41
11/30/23 02:41
APTT 25.6 Sec (23.4-35.0) 11/30/23 06:07
LAB Results
11/29/23 11/29/23 11/29/23
07:55 13:42 17:57
Troponin I 0.098 H* 0.101 H* Cancelled
11/29/23 11/30/23
20:47 02:41
Troponin I 1.690 H* D 16.000 H* D
Physical Exam
Constitutional: No acute distress and Comfortable
EENT: Anicteric and Moist mucous membranes
Cardiovascular: Rhythm & rate is regular, Pedal edema is absent and JVD pressure is normal
Respiratory: Respiratory effort normal, Lungs clear to auscul. and Wheeze Absent
GI: Soft, Distention absent, Flat and Non tender
Neuro/Psych: Alert, Oriented and AO x 3
Other: Cath Site
Data Reviewed
-
Date of Service: November 30, 2023
Medical Decision Making: Reviewed Test Results, Tests Ordered, Independent Historian Assessment and Test Interpretation
EKG: Tracing Personally Visualized and interpreted
Echo: Report Reviewed by me
Labs: Labs Reviewed by me
Old Records: Reviewed
[2023-11-30 11:53] LABS: Glycohemoglobin (HgbA1c) 7.2 % (4.0-5.6)
--- NOTE | 2023-11-30 14:29 | PTCARENOTE ---
assessment as documented, vss throughout day. No C/O chest pain. hematuria minimal compared to yesterday. Pt states he 'feels better then yesterday bit tired '
[2023-11-30 15:57] LABS: APTT 57.4 Sec (23.4-35.0)
[2023-11-30] MEDS: CRESTOR 40 MG PO (17:56)
[2023-11-30] MEDS: ULTRAM 50 MG PO (18:08)
[2023-11-30] MEDS: MYLICON 80 MG PO (21:51)
[2023-11-30 22:40] LABS: APTT 66.7 Sec (23.4-35.0)
--- NOTE | 2023-12-01 00:02 | PTCARENOTE ---
Pt received start of shift, HR SR w/ BBB. Heparin infusing at 1300u/hr. Pt requesting melatonin to sleep as well as something for gas, TT [employer] TENDER Mar - dose ordered, see MAR. Pt ambulating to bathroom w/ standby assist - urine yogesh, clear. Updated pt
on plan of care, pt states understanding. Pt denies any CP, SOB, or lightheadedness/dizziness. Informed to notify RN if any changes, call castillo within reach.
[2023-12-01 03:39] VITALS: BP 101/72
[2023-12-01 03:41] VITALS: BMI 29.0
[2023-12-01 05:40] LABS: Hemoglobin 11.3 g/dL (13.0-18.0); Mean Corp Hgb Conc. 35.3 g/dL (33.0-37.0); Mean Corpuscular Hgb 35.4 pg (27.0-31.0); Mean Corpuscular Volume 100.3 fL (80.0-94.0); Mean Platelet Volume 9.3 fL (7.4-10.4); Platelet Count 153 10^3/uL (130-400); Red Blood Cell Count 3.19 10^6/uL (4.70-6.10); Red Cell Dist. Width 12.8 % (11.5-14.5); White Blood Cell Count 8.9 10^3/uL (4.8-10.8)
[2023-12-01 05:54] LABS: APTT 137.2 Sec (23.4-35.0)
[2023-12-01 06:00] VITALS: BMI 29.0
[2023-12-01] MEDS: HEPARIN 25000 UNITS/250 ML IV (06:39)
[2023-12-01 06:43] LABS: Blood Urea Nitrogen 16 mg/dl (9-20); Calcium 9.3 mg/dl (8.4-10.2); Carbon Dioxide 21 mmol/L (22-30); Chloride 105 mmol/L (98-107); Estimated Creatinine Clearance 106 ml/min; Glucose 108 mg/dl (70-99); Potassium 4.2 mmol/L (3.5-5.1); Sodium 133 mmol/L (135-145); eGFR > 60.00
[2023-12-01 07:55] VITALS: BP 139/95
[2023-12-01] MEDS: BRILINTA 90 MG PO ×2 (07:55→19:02)
[2023-12-01] MEDS: VITAMIN C 500 MG PO (07:55)
[2023-12-01] MEDS: ASPIR LOW (ENTERIC COATED) 81 MG PO (07:55)
[2023-12-01] MEDS: THERAGRAN 1 TABLET PO (07:55)
[2023-12-01] MEDS: VITAMIN D3 (cholecalciferol) 25 MCG PO (07:55)
[2023-12-01] MEDS: COREG 12.5 MG PO ×2 (07:55→19:02)
--- NOTE | 2023-12-01 08:44 | W.PN.CD ---
Today's Communication / Plan
-
-N.p.o. after midnight
-Plan for PCI in the morning
-Continue heparin drip at this time
Impression / Plan
-
NSTEMI - intermittent chest pain x 5 days.
- initial troponin 0.098, trend to peak.
- EKG with NSR, LBBB.
- known 70% distal RCA lesion from cath 2020.
- Lexiscan 10/2021 with normal perfusion.
- high pre-test probability,
- s/p LHC 11/28/23 - PTCA to RCA
- Plan for staged intervention to the distal RCA via femoral access on 12/02/23.
- Continue DAPT with ASA/ticag, heparin drip
ICM - EF 45-50% on echo 06/2022.
- no HF on exam.
- update echo.
- continue GDMT.
HTN - stable on medical therapy, continue.
HLD - on Crestor.
- LDL 101 in July 2023.
- did not tolerate Zetia.
- will need to consider PCSK9i as outpatient since LDL goal is < 55.
Spinal stenosis - stable, s/p MILD procedure 11/20/23.
Physical Exam
Vital Signs/Labs
Vital Signs
Temp Pulse Resp BP Pulse Ox
98.2 F 78 18 139/95 96
12/01/23 07:24 12/01/23 07:55 12/01/23 07:24 12/01/23 07:55 12/01/23 07:24
11/30/23 12/01/23 12/02/23
06:59 06:59 06:59
Actual Weight 95.7 kg 94.2 kg
12/01/23 05:17
12/01/23 05:17
APTT 137.2 Sec (23.4-35.0) H 12/01/23 05:17
LAB Results
11/29/23 11/29/23 11/29/23
07:55 13:42 17:57
Troponin I 0.098 H* 0.101 H* Cancelled
11/29/23 11/30/23 11/30/23
20:47 02:41 09:18
Troponin I 1.690 H* D 16.000 H* D 25.600 H* D
11/30/23
22:13
Troponin I 20.900 H*
Physical Exam
Constitutional: No acute distress and Comfortable
EENT: Anicteric and Moist mucous membranes
Cardiovascular: Rhythm & rate is regular, Pedal edema is absent, JVD pressure is normal and Systolic murmur absent
Respiratory: Respiratory effort normal, Lungs clear to auscul. and Wheeze Absent
GI: Soft, Distention absent, Non tender and Normal bowel sounds
Neuro/Psych: Alert, Oriented and AO x 3
Other: Cath Site
Data Reviewed
-
Date of Service: December 01, 2023
Medical Decision Making: Reviewed Test Results, Tests Ordered, Independent Historian Assessment, Test Interpretation and Review of Case with other Provider
EKG: Tracing Personally Visualized and interpreted
Medical Tests (PFT, Pathology etc): Report Reviewed by me, Discussed with Physician, Discussed with Nurse and Discussed with Patient
Labs: Labs Reviewed by me
Old Records: Reviewed
[2023-12-01 11:00] VITALS: BP 96/61
--- NOTE | 2023-12-01 12:43 | W.PN.HOSP.TC ---
Today's Communication/Plan
-
continue current care plan
for cath tomorrow
Assessment / Plan
Assessment / Plan
[facility] summary 11/28
1. Obstructive coronary artery disease in a right dominant system, with non-obstructive ISR in the LAD and LCx and high grade lesions in the proximal and distal RCA.
2. Mildly elevated LV filling pressure and no aortic stenosis on pullback.

1. Chest pain
Presumed unstable angina
h/o CAD s/p circumflex DESx2
-Patient having episodic chest pain at rest for last 1 week
-Minimal troponin elevation of 0.098, f/u trop ordered
-Patient have history of coronary disease with circumflex stenting in the past
-EKG reviewed no major ST segment/T wave changes
-Patient was loaded on aspirin 325 mg by EMS, continue aspirin 81mg/d
-Brilinta and heparin drip to be continued
-[facility] report summary as above and patient is planned to undergo stage yao repeat PCI intervention on 12/01
-Emergent re-cath if any clinical concern of worsening ACS.
2. Ischemic cardiomyopathy
HFmrEF
Left bundle branch block
-Echocardiogram in June 28 showing EF of 45 to 50%.
-Patient not on diuretics, no signs of volume overload
3. Hyperlipidemia
-maintain on Crestor home dose
4. Essential hypertension
-continue coreg with holding parameter
-Hold Entresto/Aldactone with need of contrast study. monitor renal function before resumption
5. Hematuria
-episode of elaine blood in urine last night, in morning tea colored urine
-Likely with need of DAPT/Heparin drip
-Denies h/o of BPH/Bladder issues in the past
-Monitor for any signs of retention/recurrence and will need chopra catheter
lumbar spinal stenosis status post minimally invasive laminectomy
DVT PPX - heparin drip
Full code
Anticipated Discharge: 24 - 48 hours
Subjective/Interval History
-
Date of Service: December 01, 2023
Some minimal chest discomfort while having bowel movement
nausea post diet
Objective Data
-
Labs:
Laboratory Results
12/01/23 12/01/23
05:17 13:00
WBC 8.9
Hgb 11.3 L
Hct 32.0 L
Plt Count 153
APTT 137.2 H Pending
Sodium 133 L
Potassium 4.2
Chloride 105
Carbon Dioxide 21 L
BUN 16
Creatinine 0.6 L
Glucose 108 H
Calcium 9.3
Vital Signs:
Vital Signs
Temp Pulse Resp BP Pulse Ox
98.4 F 81 18 139/95 95
12/01/23 11:00 12/01/23 08:45 12/01/23 11:00 12/01/23 07:55 12/01/23 11:00
I&O
11/30/23 12/01/23 12/02/23
06:59 06:59 06:59
Intake Total 730 / 730 480 / 480
Output Total 425 / 425 300 / 300
Balance 305 / 305 -300 / -300 480 / 480
Review of Systems
-
Respiratory: Reports No Symptoms
Cardiac: Reports No Symptoms
Abdomen/GI: Reports Nausea; Denies Vomiting
Genitourinary: Reports Bleeding
Physical Exam
-
General: No Apparent Distress and Comfortable
HEENT: Negative Oxygen
Respiratory: Clear to Auscultation
Cardiac: Regular Rhythm and S1/S2; Negative Murmur or Rub
GI: Soft, Nontender and Nondistended
Musculoskeletal: No Edema and Other (Right wrist cath access site, echymosis, palpable pulse)
Neuro: Awake, Alert, Oriented, No Motor Deficits and Nonfocal/Grossly Intact
Psych: Calm
[2023-12-01 13:23] LABS: APTT 88.9 Sec (23.4-35.0)
[2023-12-01 14:55] VITALS: BP 94/68
--- NOTE | 2023-12-01 17:04 | PTCARENOTE ---
pt is sr on the monitor, hr in the 80s, vss. pt offers no complaints at this time. pt educated on plan of care for the evening and pt verbalized understanding. heparin gtt running per protocol, see documentation. pt ambulating in room and tolerating
well. call castillo within reach.
[2023-12-01] MEDS: CRESTOR 40 MG PO (17:44)
[2023-12-01 19:02] VITALS: BP 109/74
[2023-12-01] MEDS: MYLICON 80 MG PO (19:02)
[2023-12-01 19:50] LABS: APTT 76.4 Sec (23.4-35.0)
[2023-12-01 22:09] VITALS: BP 129/77
[2023-12-01] MEDS: MELATONIN 5 MG PO (22:10)
[2023-12-02] VITALS (13 sets, daily range): BP systolic 79–136; BP diastolic 54–85; BMI 29.0
--- NOTE | 2023-12-02 02:12 | PTCARENOTE ---
Pt. received at change of shift. Pt seen and assessed in room. Pt. AOx3, VS WNL., no complaints of pain at this time. Plan of care explained to patient. NPO after for possible cardiac cath 12/01. Continuing to monitor the pt at this time.
[2023-12-02] MEDS: TYLENOL 650 MG PO (04:06)
[2023-12-02 04:41] LABS: APTT 101.4 Sec (23.4-35.0)
[2023-12-02] MEDS: VITAMIN C 500 MG PO (07:49)
[2023-12-02] MEDS: THERAGRAN 1 TABLET PO (07:49)
[2023-12-02] MEDS: ASPIR LOW (ENTERIC COATED) 81 MG PO (07:49)
[2023-12-02] MEDS: COREG PO (07:49)
[2023-12-02] MEDS: VITAMIN D3 (cholecalciferol) 25 MCG PO (07:49)
[2023-12-02] MEDS: BRILINTA 90 MG PO (07:49)
--- NOTE | 2023-12-02 08:50 | W.PN.HOSP.TC ---
Today's Communication/Plan
-
ACS protocol. Repeat cardiac cath today.
Assessment / Plan
Assessment / Plan
Physical exam:
General: Well Developed, Well Nourished and No Apparent Distress
HEENT: Normocephalic, Atraumatic and Moist Mucous Membranes
Respiratory: Clear to Auscultation; Negative Wheezes, Rales or Rhonchi
Cardiac: Regular Rhythm and S1/S2
GI: Soft, Nontender and Nondistended
Musculoskeletal: No Clubbing, No Cyanosis and No Edema
Neuro: Awake, Alert and Oriented
Psych: Calm
A/P:
[facility] summary 11/28
1. Obstructive coronary artery disease in a right dominant system, with non-obstructive ISR in the LAD and LCx and high grade lesions in the proximal and distal RCA.
2. Mildly elevated LV filling pressure and no aortic stenosis on pullback.

1. Chest pain
Presumed unstable angina
h/o CAD s/p circumflex DESx2
-Patient having episodic chest pain at rest for last 1 week
-Minimal troponin elevation of 0.098, f/u trop ordered
-Patient have history of coronary disease with circumflex stenting in the past
-EKG reviewed no major ST segment/T wave changes
-Patient was loaded on aspirin 325 mg by EMS, continue aspirin 81mg/d
-Brilinta and heparin drip to be continued although heparin drip on hold due to upcoming procedure
-[facility] report summary as above and patient is planned to undergo stage yao repeat PCI intervention on 12/01
-Emergent re-cath if any clinical concern of worsening ACS.
-Plan to possibly repeat cardiac catheterization today
-Discussed with cardiology today on 12/01
2. Ischemic cardiomyopathy
HFmrEF
Left bundle branch block
-Echocardiogram in June 28 showing EF of 45 to 50%.
-Patient not on diuretics, no signs of volume overload
3. Hyperlipidemia
-maintain on Crestor home dose
4. Essential hypertension
-continue coreg with holding parameter
-Hold Entresto/Aldactone with need of contrast study. monitor renal function before resumption
5. Hematuria
-episode of elaine blood in urine last night, in morning tea colored urine
-Likely with need of DAPT/Heparin drip
-Denies h/o of BPH/Bladder issues in the past
-Monitor for any signs of retention/recurrence and will need chopra catheter
lumbar spinal stenosis status post minimally invasive laminectomy
DVT PPX - heparin drip
Full code
Total time spent on today's encounter was 52 minutes which included time spent in counseling the patient/family regarding diagnosis and treatment plan as listed above, goals of care, and symptom management. Case was discussed with nursing staff,
specialists, and care coordinators/case management. All labs and imaging personally reviewed by me. Remainder the time spent in detailed review of previous records, lab data, imaging, and other medical provider documentation.
Anticipated Discharge: 24 - 48 hours
Subjective/Interval History
-
Date of Service: December 02, 2023
Patient denies chest pain or shortness of breath today.
Objective Data
-
Labs:
Laboratory Results
12/02/23
04:02
APTT 101.4 H
Vital Signs:
Vital Signs
Temp Pulse Resp BP Pulse Ox
98.1 F 69 18 136/73 98
12/02/23 07:38 12/02/23 07:45 12/02/23 07:38 12/02/23 07:37 12/02/23 07:38
I&O
12/01/23 12/02/23 12/03/23
06:59 06:59 06:59
Intake Total 524 / 524
Output Total 300 / 300
Balance -300 / -300 524 / 524
--- NOTE | 2023-12-02 09:30 | W.PN.CD ---
Today's Communication / Plan
-
high risk PCI to distal RCA today; further recs to follow post-PCI
Impression / Plan
-
NSTEMI - intermittent chest pain x 5 days; found to have severe proximal and distal RCA stenosis s/p PCI to proximal RCA, with plan for staged revascularization to distal RCA today
- initial troponin 0.098, peak at 25 post procedurally
- Continue DAPT with ASA/ticag, heparin drip
- discussed with CT surgery, plan to have CT surgery backup available given moderate risk for possible vessel loss during PCI with inability to rescue
- risk and benefits of PCI disucssed with the patient, as well as 1-3% risk of need for emergent CT surgery discussed; patient wishes to proceed
ICM - EF 45-50% with new inf. lat RWMA
- no HF on exam.
- continue GDMT.
HTN - stable on medical therapy, continue.
HLD - on Crestor.
- LDL 66 here
- did not tolerate Zetia.
- will need to consider PCSK9i as outpatient since LDL goal is < 55
Spinal stenosis - stable, s/p MILD procedure 11/20/23.
Physical Exam
Vital Signs/Labs
Vital Signs
Temp Pulse Resp BP Pulse Ox
36.7 C 69 18 136/73 98
12/02/23 07:38 12/02/23 07:45 12/02/23 07:38 12/02/23 07:37 12/02/23 07:38
12/01/23 12/02/23 12/03/23
06:59 06:59 06:59
Actual Weight 94.2 kg 94.4 kg
12/01/23 05:17
12/01/23 05:17
APTT 101.4 Sec (23.4-35.0) H 12/02/23 04:02
LAB Results
11/29/23 11/29/23 11/29/23
13:42 17:57 20:47
Troponin I 0.101 H* Cancelled 1.690 H* D
11/30/23 11/30/23 11/30/23
02:41 09:18 22:13
Troponin I 16.000 H* D 25.600 H* D 20.900 H*
Physical Exam
Constitutional: No acute distress and Comfortable
Cardiovascular: Rhythm & rate is regular, Pedal edema is absent, JVD pressure is normal and Systolic murmur absent
Respiratory: Respiratory effort normal, Lungs clear to auscul., Wheeze Absent, Crackles Absent and Rhonchi Absent
Neuro/Psych: Alert, Oriented and AO x 3
Other: Skin and Cath Site (cdi)
Data Reviewed
-
Date of Service: December 02, 2023
Medical Decision Making: Reviewed Test Results, Test Interpretation and Review of Case with other Provider
EKG: Tracing Personally Visualized and interpreted and Report Reviewed by me
Echo: Tracing Personally Visualized and interpreted and Report Reviewed by me
X-Ray/CT/US/MRI/NUC/PET: Image Personally Visualized and interpreted and Report Reviewed by me
Medical Tests (PFT, Pathology etc): Image Personally Visualized and interpreted and Report Reviewed by me
Labs: Labs Reviewed by me
--- NOTE | 2023-12-02 10:17 | PTCARENOTE ---
Patient in bed resting comfortably, no complaints of chest pain, awaiting time for laborer operator.
--- NOTE | 2023-12-02 11:25 | PTCARENOTE ---
Confirmed with cardiology that heparin gtt can remain off while he awaits laboratory chemical assistant
--- NOTE | 2023-12-02 13:10 | CM ---
Addendum entered by Taty Wilson 12/02/23 14:04:
Asked to check co-pay for Prasugrel 10 mg po daily for a 30 day supply is $4.51 and for 90 day supply is $18.47.
Original Note:
Reviewed chart. Met with Mr. March to review discharge plans. He states prior to admission he resides with his spouse in a two story home without any steps to enter. He states he has a full flight of steps to get to bedroom/full bathroom. He
states he has a powder room on the first floor. He states prior to admission he was independent with ambulation and adls. He states he does not have any DME in the home. He states he has a prescription plan and uses [facility]. Medical
work-up in progress. The discharge plan is to return home with his spouse when medically stable.
We reviewed his co-pay of $108.31 a month for Brilinta and he feel he can ont afford the co-pay. He is in the coverage gap.
--- NOTE | 2023-12-02 13:33 | PTCARENOTE ---
Called roofing laborer to seek a time for patient. yard labor supervisor relayed that they are awaiting OR back up availability at this time, but that patient will still go to roofing laborer today
[2023-12-02 16:09] LABS: ACT-LR - POC 253 Seconds (116-155)
[2023-12-02 16:24] LABS: ACT-LR - POC 289 Seconds (116-155)
[2023-12-02 16:48] LABS: ACT-LR - POC 279 Seconds (116-155)
[2023-12-02 17:01] LABS: ACT-LR - POC 287 Seconds (116-155)
[2023-12-02 17:29] LABS: ACT-LR - POC 305 Seconds (116-155)
[2023-12-02 17:58] LABS: ACT-LR - POC 265 Seconds (116-155)
[2023-12-02 18:23] LABS: ACT-LR - POC 290 Seconds (116-155)
--- NOTE | 2023-12-02 18:39 | PTCARENOTE ---
Patient is still off the floor in electronic lab technician
[2023-12-02 18:49] LABS: ACT-LR - POC 265 Seconds (116-155)
--- NOTE | 2023-12-02 19:01 | ITS.CL.ANGIO ---
Addendum entered and electronically signed by Mikey Bridges MD 12/06/23 16:55:
Correction: Date of Procedure: 12/02/2023
Original Note:
Electrical Assistant - Angioplasty
Angioplasty
Procedure Report:
CARDIAC CATHETERIZATION REPORT
Date of Procedure: 11/29/2023
Referring: Dr. Isaiah Thomas
Indication: Staged revascularization of severe distal RCA stenosis after successful proximal RCA PCI for NSTEMI
PROCEDURE:
1. IVUS of RCA
2. Balloon angioplasty and shockwave lithotripsy to the distal RCA
ACCESS:
8 Macedonian right femoral artery
CATHETERS:
8 Macedonian AL1 guide catheter
INTERVENTION:
Right common femoral artery access was obtained with ultrasound guidance using micropuncture access and sheath angiography demonstrated an arteriotomy in the CASH CROP FARMER. A 8F 45 cm destination sheath was then placed. A 5F right femoral vein sheath was
placed for ACT monitoring. Heparin was administered to maintain ACT>250. The RCA was engaged with a 8F AL1 guide catheter. A Runthrough wire was advanced to the distal lesion. Using a 2.5x15 balloon, a 7F guideliner was advanced via balloon assisted
tracking and inchworming until distal to the previously placed stent. The Runthrough wire was then swapped for a Whisper coronary wire which easily cross the lesion. Initial lesion preparation was performed with a 1.5x10 Euphora balloon with full
expansion. Serial balloon angioplasty was then performed with a Trek 2.5x12 mm NC balloon. IVUS was attempted but the [place] catheter would not cross the lesion. However, IVUS pullback from the lesion site demonstrated a 3.5 mm distal reference
diameter and significant calcification at the proximal aspect of the lesion. Next, further balloon angioplasty was performed with a 3.0x15 mm Euphora NC balloon. A 4.0x12 mm Shockwave lithotripsy balloon was then selected (3.0 and 3.5 mm balloons
were not available) and delivered but could not be advanced across the lesion. It was removed and further lesion preparation was performed with a 3.5x15 mm NC balloon taken to 12 mimi with full expansion noted in two orthogonal views. Again, we
attempted to deliver the Shockwave balloon unsuccessfully. Thus, we elected to deliver 40 treatments at 2 mimi (to avoid over-sizing to the 3.5 mm vessel) with the balloon partially wedged in the lesion. Next, further Shockwave lithotripsy was
attempted with a 2.5x12 mm Shockwave balloon (with the hope of achieving better contact with the mid-distal aspect of the lesion). Unfortunately, during maneuvers to deliver the balloon the guide prolapsed and the entire system was lost. The lesion
was able to be rewired without issue, however, despite multiple attempts, including use both AL1 and AR1 guide catheters and repeated attempts at balloon assisted tracking and anchoring, the guideliner could not be re-delivered to a sufficiently
distal position to allow delivery of the 2.5x12 mm Shockwave balloon. Given the tortuosity of the vessel, presence of stent in the proximal vessel, and the difficulty delivering the 4.0 Shockwave balloon across the lesion even with very distal
guideliner positioning, it was not felt that stenting would be successful without repositioning of the guideliner further distally. At this point, given the length of the procedure and the contrast and radiation used, we elected to accept the
balloon angioplasty result without further attempts at stent delivery. Final angiogram demonstrated positive modification of the lesion site, with reduction of stenosis from ~90% to ~50% (exact quantification difficult given lesion eccentricity) and
improvement in flow on direct comparison from NACHO 2 to NACHO 3, with no evidence of complication. The wire and guide were removed and a Perclose used to close the femoral artery.
RADIATION INFORMATION:
Fluoroscopy time (min) 75.4
DAP (Gy.cm2) 404.41
Dose (mGy) 3546.17
CONCLUSIONS/RECOMMENDATIONS:
1. Partially successful PCI to the distal RCA with balloon angioplasty and Shockwave lithotripsy but inability to delivery a stent.
2. Continue DAPT with ASA/Prasugrel (will transition to Prasugrel tonight given cost concerns with ticagrelor).
3. 1.5 L fluids post-PCI to avoid IVY.
4. 4 hours of bedrest.
5. As outpatient, will need aggressive secondary risk modification including anti-lipid therapy for goal LDL<55.
Copy to: Dr. Guy Moreira MD
Signed: Mikey Bridges MD, PhD
--- NOTE | 2023-12-02 19:36 | PTCARENOTE ---
received patient from the bolt labeler. AAOx3. denies any cp/sob. educated patient on activity restrictions. R groin site, CDI; soft. + pulses. SR with a BBB 80s. bp 117/75. 100% on RA.
[2023-12-02] MEDS: EFFIENT 60 MG PO (20:10)
[2023-12-02] MEDS: NSS 1000 IV (20:10)
[2023-12-02] MEDS: COREG 12.5 MG PO (20:10)
[2023-12-02] MEDS: CRESTOR 40 MG PO (20:10)
--- NOTE | 2023-12-02 23:26 | PTCARENOTE ---
at approx 2230, patient oob to the bathroom. on his way back, patient states feeling lightheaded. sat in chair. bp 79/54. assisted patient back to bed; elevated feet. bp-103.68. SR 80s. R groin site, mild oozing noted. dressing changed. IVF infusing
per order.
currently, patient denies any lightheadness/dizziness. denies any cp/sob. bp 101/61. HR 70s. R groin site CDI, soft. educated patient to call RN with any changes overnight and for assistance oob. patient verbalized understanding.
-blood tinged urine noted in urinal.
[2023-12-03] VITALS (11 sets, daily range): BP systolic 83–108; BP diastolic 53–73; BMI 29.3
[2023-12-03] MEDS: TYLENOL 650 MG PO (02:02)
[2023-12-03] MEDS: NSS 1000 IV (02:07)
[2023-12-03 03:58] LABS: Hematocrit 26.5 % (39.0-52.0); Hemoglobin 9.5 g/dL (13.0-18.0); Mean Corp Hgb Conc. 35.8 g/dL (33.0-37.0); Mean Corpuscular Hgb 34.9 pg (27.0-31.0); Mean Corpuscular Volume 97.4 fL (80.0-94.0); Mean Platelet Volume 9.4 fL (7.4-10.4); Platelet Count 140 10^3/uL (130-400); Red Blood Cell Count 2.72 10^6/uL (4.70-6.10); Red Cell Dist. Width 12.8 % (11.5-14.5)
[2023-12-03 04:19] LABS: Blood Urea Nitrogen 14 mg/dl (9-20); Calcium 8.3 mg/dl (8.4-10.2); Carbon Dioxide 19 mmol/L (22-30); Chloride 106 mmol/L (98-107); Estimated Creatinine Clearance 106 ml/min; Glucose 104 mg/dl (70-99); Potassium 3.9 mmol/L (3.5-5.1); Sodium 134 mmol/L (135-145); eGFR > 60.00
--- NOTE | 2023-12-03 06:41 | PTCARENOTE ---
no chest pain overnight. patient slept well. vital signs stable.
--- NOTE | 2023-12-03 07:59 | W.CARD.POSTP ---
Post PCI Follow Up
Procedure
Procedure/Date: 12/02/23- Partially successful PCI to the distal RCA with balloon angioplasty and Shockwave lithotripsy but inability to delivery a stent
Subjective: denies cp/palps/dsypnea
some dizziness last night post procedure but improved today
groin site without pain
Site
Site: Femoral with Internal Closure Device: Right and No ht/bleeding, distal pulses palpable
perclose to RFA
Tele / EKG
NSR, LBBB 70-80s, no vt/arrhythmia
Labs
12/03/23 03:39
12/03/23 03:39
APTT 101.4 Sec (23.4-35.0) H 12/02/23 04:02
DAPT Medication
DAPT Medication: Aspirin 81mg daily and Prasugrel 10 mg daily
Case Management checking cai: Yes
Plan
NSTEMI from 11/28- s/p prox RCA angioplasty/BERTA
Peak troponin 25.6
Changed from brilinta to effient post cath d/t cost, with 60mg load last evening and 10mg daily starting today
Radiation exposure- 11/28- >3000mGy, 12/01- 3546 mGy --> total is >7 Gy, will return to lab in 2 weeks for skin check with rags laborer FLOW MATCH SOFA CUTTER
Hgb 9.5- likely dilute after fluids intra/post cath- CBC/BMP outpt labs in 1 week
Resume all outpt meds- entresto, spironolactone
cardiac rehab consult
Cards followup- 12/22 at 11:20am with Dr. Moreira
[2023-12-03] MEDS: VITAMIN D3 (cholecalciferol) 25 MCG PO (08:15)
[2023-12-03] MEDS: ASPIR LOW (ENTERIC COATED) 81 MG PO (08:15)
[2023-12-03] MEDS: THERAGRAN 1 TABLET PO (08:15)
[2023-12-03] MEDS: COREG 12.5 MG PO (08:15)
[2023-12-03] MEDS: VITAMIN C 500 MG PO (08:15)
[2023-12-03] MEDS: FLUSH (NSS) 1 FLUSH IV (08:18)
--- NOTE | 2023-12-03 09:05 | W.PN.HOSP.TC ---
Addendum entered and electronically signed by Daniel Schwarz MD 12/03/23 16:33:
patient did not feel well. Cancel d/c and cardiology notified.
Original Note:
Today's Communication/Plan
-
Continue current cardiac medications. Discharge planning in progress
Assessment / Plan
Assessment / Plan
Physical exam:
General: Well Developed, Well Nourished and No Apparent Distress
HEENT: Normocephalic, Atraumatic and Moist Mucous Membranes
Respiratory: Clear to Auscultation; Negative Wheezes, Rales or Rhonchi
Cardiac: Regular Rhythm and S1/S2
GI: Soft, Nontender and Nondistended
Musculoskeletal: No Clubbing, No Cyanosis and No Edema
Neuro: Awake, Alert and Oriented
Psych: Calm
A/P:
1. NSTEMI
ACS protocol
Cardiac cath x 2, RCA disease status post angioplasty but unable to stent
DAPT per cardiology
Discussed with cardiology today and possibly discharge later today
2. Ischemic cardiomyopathy
HFmrEF
Left bundle branch block
-Echocardiogram in June 28 showing EF of 45 to 50%.
-Patient not on diuretics, no signs of volume overload
3. Hyperlipidemia
-maintain on Crestor home dose
4. Essential hypertension
-continue coreg with holding parameter
-Hold Entresto/Aldactone with need of contrast study. Renal function stable. Creatinine 0.6. Restart upon discharge
5. Hematuria
-episode of elaine blood in urine last night, in morning tea colored urine
-Likely with need of DAPT/Heparin drip
-Denies h/o of BPH/Bladder issues in the past
-Monitor for any signs of retention/recurrence and will need chopra catheter
6. Anemia
Likely dilutional
Repeated hemoglobin stable
lumbar spinal stenosis status post minimally invasive laminectomy
DVT PPX - scd
Full code
Anticipated Discharge: Today
Subjective/Interval History
-
Date of Service: December 03, 2023
Patient denies any chest pain or shortness of breath.
Objective Data
-
Labs:
Laboratory Results
12/03/23
03:39
WBC 10.0
Hgb 9.5 L
Hct 26.5 L
Plt Count 140
Sodium 134 L
Potassium 3.9
Chloride 106
Carbon Dioxide 19 L
BUN 14
Creatinine 0.6 L
Glucose 104 H
Calcium 8.3 L
Vital Signs:
Vital Signs
Temp Pulse Resp BP Pulse Ox
98.5 F 87 16 104/69 97
12/03/23 06:42 12/03/23 08:15 12/03/23 03:47 12/03/23 08:15 12/03/23 06:42
I&O
12/02/23 12/03/23 12/04/23
06:59 06:59 06:59
Intake Total 524 / 524 1668 / 1668
Output Total 250 / 250
Balance 524 / 524 1418 / 1418
[2023-12-03] MEDS: EFFIENT 10 MG PO (09:49)
[2023-12-03] MEDS: ENTRESTO 97 MG/103 MG 1 TAB PO ×2 (09:50→19:58)
[2023-12-03] MEDS: ALDACTONE 25 MG PO (09:50)
--- NOTE | 2023-12-03 10:45 | W.PN.CD ---
Addendum entered and electronically signed by Mikey Bridges MD 12/03/23 10:54:
# Anemia
- likely dilutional / blood loss from large [place]ian guide catheter during PCI 12/01
- no e/o bleeding from cath site
--> trend CBC in afternoon for stability
Original Note:
Today's Communication / Plan
-
ambulate, discharge this afternoon if doing well
Impression / Plan
-
NSTEMI - intermittent chest pain x 5 days; found to have severe proximal and distal RCA stenosis s/p PCI to proximal RCA. Distal RCA 90% stenosis was treated with POBA and shockwave lithotripsy 12/01 as staged procedure. Unable to deliver stent given
calcium and tortuosity but good angioplasty result with improved lumen gain and flow.
- Continue DAPT with ASA/prasugrel (now transitioned from ticagrelor due to cost concerns)
- feeling well today with no chest discomfort, groin site c/d/i
- will have patient ambulate today and assess for discharge this afternoon
ICM - EF 45-50% with new inf. lat RWMA
- no HF on exam.
- continue GDMT (restarted home aldactone/entresto today)
HTN - stable on medical therapy, continu
HLD - on Crestor.
- LDL 66 here
- did not tolerate Zetia.
- will need to consider PCSK9i as outpatient since LDL goal is < 55
Spinal stenosis - stable, s/p MILD procedure 11/20/23.
Physical Exam
Vital Signs/Labs
Vital Signs
Temp Pulse Resp BP Pulse Ox
36.9 C 74 16 104/69 97
12/03/23 06:42 12/03/23 09:50 12/03/23 03:47 12/03/23 09:50 12/03/23 06:42
08/26/24 08/27/24 08/28/24
06:59 06:59 06:59
Actual Weight 94.4 kg
12/03/23 03:39
12/03/23 03:39
APTT 101.4 Sec (23.4-35.0) H 12/02/23 04:02
LAB Results
11/30/23
22:13
Troponin I 20.900 H*
Physical Exam
Constitutional: No acute distress and Comfortable
Cardiovascular: Rhythm & rate is regular, Pedal edema is absent, JVD pressure is normal, Systolic murmur absent and Diastolic murmur absent
Respiratory: Respiratory effort normal and Lungs clear to auscul.
Neuro/Psych: Alert, Oriented and AO x 3
Data Reviewed
-
Date of Service: December 03, 2023
Medical Decision Making: Reviewed Test Results
EKG: Tracing Personally Visualized and interpreted
Medical Tests (PFT, Pathology etc): Image Personally Visualized and interpreted and Report Reviewed by me
Labs: Labs Reviewed by me
--- NOTE | 2023-12-03 11:55 | PTCARENOTE ---
received patient this am, patient stated he feels lethargic, weak, just wants to rest. H/H 9.5/26.5 Dr. Bridges aware and ordered CBC at noon which was drawn and sent to lab. monitor shows NSR with BBC, VSS. right radial ecchymotic, distal pulse
palpable. right groin dsg. D/I, tender to touch distal pulse weak but palpable.
[2023-12-03 11:56] LABS: Hematocrit 27.5 % (39.0-52.0); Mean Corp Hgb Conc. 36.4 g/dL (33.0-37.0); Mean Corpuscular Hgb 35.5 pg (27.0-31.0); Mean Corpuscular Volume 97.5 fL (80.0-94.0); Mean Platelet Volume 9.4 fL (7.4-10.4); Platelet Count 141 10^3/uL (130-400); Red Blood Cell Count 2.82 10^6/uL (4.70-6.10); Red Cell Dist. Width 12.7 % (11.5-14.5); White Blood Cell Count 10.9 10^3/uL (4.8-10.8)
--- NOTE | 2023-12-03 12:36 | CM ---
Reviewed chart. Met with Mr. March to review discharge plans. Reviewed co-pay for Prasugrel 10 mg po is $4.51 for a month and $18.47 for a 90 day supply. He is agreeable to the co-pay. Telephone call to [facility] to check if they have
Prasugrel in stock. [facility] does not have it in stock. Script sent today so they can order and have it in tomorrow afternoon. Prior to admission he resides with his spouse in a two story home without any steps to enter. He has a full flight
of steps to get to bedroom/full bathroom. He has a powder room on the first floor. Prior to admisison he was independent with ambulation and adls He does not have any DME in the home. He has a prescription plan and uses [facility]. Medical
work-up in progress. The discharge plan is to retur home with his spouse when medically stable.
--- NOTE | 2023-12-03 12:46 | W.DCSUMMARY ---
Discharge Summary
Discharge Data
Date of Admission: 11/29/23
Date of Discharge: 12/04/23
-
Pending Results: No
Hospital Course
Patient 78 years old male history of CAD, ischemic cardiomyopathy, hypertension, hyperlipidemia, LBBB, spinal stenosis, obesity presented to the hospital chest pain associated with elevated troponin consistent with acute non-STEMI. Patient was
placed on ACS protocol. Cardiology consulted. He was taken to cardiac cath. Echocardiogram done. Cardiac cath revealed obstructive CAD and a right dominant system especially RCA but unable to do any intervention and it was recommended to repeat
cardiac cath. CT surgery consulted in case procedure would have any complications. Cardiac cath was repeated and angioplasty performed on RCA successfully but unable to do stent. Patient did well postprocedure. He has remained chest pain-free.
He had mild dilutional drop in hemoglobin that has remained stable on repeat. Patient ambulated without any problems. Cardiology recommended medical management including dual antiplatelet therapy. Patient was cleared to be discharged on 12/02 but
he became lightheaded and cardiology reevaluated and felt that beta-blockers was contributing therefore Coreg was switched to Toprol-XL. Cardiology reevaluated the following day on 12/03 today and cleared him for discharge. Cardiology attempted to
do Jardiance but cost prohibitive. Cardiology cleared him for discharge today. He will be discharged in stable condition today.
Discharge duration: 35 minutes
Discharge Plan
-
Patient Disposition: Home (Routine Discharge)
Discharge Diagnosis/Procedures: Non ST elevation myocardial infarction, status post angioplasty and stent to proximal Right Coronary artery (11/28), status post shockwave with angioplasty only to distal Right Coronary artery (12/01)
Diet: Low Cholesterol
Driving Restrictions: No driving for 24 hours
Blood Work: BMP, CBC in 1 week - results to Dr. Moreira
Other Services: Cardiac Rehab
Specialty Instructions: Weigh Daily- Call MD for wt gain/loss 3 lbs overnight/5 lbs in 1 week
Stand Alone Forms: DC Instructions- Cath/EP Lab, Return to Work
Referrals:
[facility] [Outside] - 12/31/23 1:00 pm
(Cardiac Rehab Orientation and First Exercise appointment is on Sunday December 31, 2023 at 1PM.
The Cardiac Rehab gym is located on the first floor of the [facility].)
Guy Moreira MD [Active] - 12/23/23 11:20 am (Cardiology followup appointment)
Gui Hanks MD [Family Provider] - in less than 1 week
Zayda Meadows CRNP [Specified Professional Personl] - 12/16/23 10:00 am (Return to civil laboratory technician in 2 weeks for skin check after increased radiation exposure over 2 cath procedures)
Prescriptions:
New
prasugrel 10 mg Tablet
10 mg PO DAILY Qty: 90 3RF
metoprolol succinate 50 mg Tablet Extended Release 24 Hr
50 mg PO DAILY@2200 30 Days Qty: 30 0RF
Continued
spironolactone 25 MG tablet
25 mg PO DAILY
rosuvastatin [Crestor] 40 MG tablet
40 mg PO QPM
cholecalciferol (vitamin D3) 1,000 UNITS tablet
1,000 units PO DAILY
multivitamin with folic acid [Tab-A-Junie] 1 TABLET tablet
1 tab PO DAILY
aspirin 81 MG tablet,delayed release (DR/EC)
81 mg PO DAILY
acetaminophen [Tylenol] 325 mg Tablet
650 mg PO Q4HPRN PRN (Reason: mild pain)
tramadol 50 mg Tablet
50 mg PO BIDPRN PRN (Reason: moderate pains)
ascorbic acid (vitamin C) [Vitamin C] 500 mg Tablet
500 mg PO DAILY
Entresto 97-103 mg Tablet
1 tab PO BID
Discontinued
carvedilol 12.5 MG tablet
12.5 mg PO BID
Discharge Orders:
Discharge Patient (As Directed); Ordered 12/04/23
Ordered By: Daniel Schwarz
Care Plan Goals
Care Plan Goals:
Problem: Readiness for enhanced knowledge related to diagnosis and treatment plan
Goal: Understand your diagnosis and treatment plan needs, including medications if applicable.
Instructions: Know your diagnosis, underlying causes and treatment plan options, including medications if applicable. Consult with your health care team to learn about your diagnosis and treatment plan, including medications if applicable.
Discharge Date and Time
Discharge Date/Time: 12/04/23 13:54
Print Language: PALAUAN
--- NOTE | 2023-12-03 14:49 | PTCARENOTE ---
Addendum entered by Dominique Rao RN 12/03/23 16:29:
patient will stay overnight, D/C will be cancelled today as per Dr. Schwarz.
Original Note:
patient BP is right arm 99/63 abd left arm 95/64, patient states that he feels weak and when he initially stands up he feels fine but when he walks to BR to void he becomes lightheaded. TT Dr. Schwarz so he is notified before discharging patient today.
[2023-12-03] MEDS: CRESTOR 40 MG PO (18:00)
[2023-12-03] MEDS: MYLICON 80 MG PO (18:00)
--- NOTE | 2023-12-03 20:51 | PTCARENOTE ---
Pt. seen and assessed in room. R radial and femoral sites c/d/i and ecchymotic. No complaints of pain at this time. Tele reading NSR 1st degree block with L bundle branch block. Pt. verbalizes understanding of plan of care. Continuing to monitor the
pt.
[2023-12-03] MEDS: MELATONIN 3 MG PO (22:27)
[2023-12-03] MEDS: TOPROL XL 50 MG PO (22:27)
[2023-12-04 04:33] VITALS: BP 96/70
[2023-12-04 07:09] VITALS: BP 99/69
[2023-12-04] MEDS: ALDACTONE 25 MG PO (07:55)
[2023-12-04] MEDS: VITAMIN D3 (cholecalciferol) 25 MCG PO (07:55)
[2023-12-04] MEDS: ASPIR LOW (ENTERIC COATED) 81 MG PO (07:55)
[2023-12-04] MEDS: THERAGRAN 1 TABLET PO (07:55)
[2023-12-04] MEDS: ENTRESTO 97 MG/103 MG 1 TAB PO (07:55)
[2023-12-04] MEDS: VITAMIN C 500 MG PO (07:56)
[2023-12-04 09:01] LABS: % Eosinophils 0.6 % (0-6); % Immature Granulocytes 0.2 % (0-0.5); % Lymphocytes 13.1 % (20.5-51.1); % Monocytes 11.1 % (1.7-9.3); Absolute Eosinophils 0.1 10^3/uL (0-0.7); Absolute Lymphocytes 1.1 10^3/uL (1.2-3.4); Absolute Monocytes 0.9 10^3/uL (0.1-0.6); Absolute Neutrophils 6.2 10^3/uL (1.4-6.5); Hematocrit 28.2 % (39.0-52.0); Hemoglobin 10.1 g/dL (13.0-18.0); Mean Corp Hgb Conc. 35.8 g/dL (33.0-37.0); Mean Corpuscular Hgb 35.6 pg (27.0-31.0); Mean Corpuscular Volume 99.3 fL (80.0-94.0); Mean Platelet Volume 9.7 fL (7.4-10.4); Nucleated Red Blood Cells % 0 % (-); Platelet Count 155 10^3/uL (130-400); Red Blood Cell Count 2.84 10^6/uL (4.70-6.10); White Blood Cell Count 8.3 10^3/uL (4.8-10.8)
[2023-12-04] MEDS: TOPROL XL PO (09:12)
--- NOTE | 2023-12-04 09:58 | W.PN.CD ---
Today's Communication / Plan
-
-Continue DAPT with ASA/prasugrel (transitioned from ticagrelor due to cost concerns).
-Continue high-dose rosuvastatin 40 mg daily.
-Continue Entresto, spironolactone, and metoprolol succinate.
-Will add Jardiance 10 mg daily.
Impression / Plan
-
NSTEMI - intermittent chest pain x 5 days; found to have severe proximal and distal RCA stenosis s/p PCI to proximal RCA. Distal RCA 90% stenosis was treated with POBA and shockwave lithotripsy 12/01 as staged procedure. Unable to deliver stent given
calcium and tortuosity but good angioplasty result with improved lumen gain and flow.
-Continue DAPT with ASA/prasugrel (transitioned from ticagrelor due to cost concerns).
-Continue high-dose rosuvastatin 40 mg daily.
ICM - EF 45-50% with new inf. lat RWMA
-Compensated on examination.
-Continue Entresto, spironolactone, and metoprolol succinate.
-Will add Jardiance 10 mg daily.
HTN -well-controlled on current medication regimen.
HLD - on Crestor.
- LDL 66 here
- did not tolerate Zetia.
- will need to consider PCSK9i as outpatient since LDL goal is < 55
Spinal stenosis - stable, s/p MILD procedure 11/20/23.
Physical Exam
Vital Signs/Labs
Vital Signs
Temp Pulse Resp BP Pulse Ox
97.8 F 74 18 99/69 96
12/04/23 07:11 12/04/23 07:55 12/04/23 07:11 12/04/23 07:55 12/04/23 08:30
12/03/23 12/04/23 12/05/23
06:59 06:59 06:59
Actual Weight 95.3 kg
12/04/23 08:28
APTT 101.4 Sec (23.4-35.0) H 12/02/23 04:02
Physical Exam
Constitutional: No acute distress and Comfortable
EENT: Anicteric
Cardiovascular: Rhythm & rate is regular, Pedal edema is absent, Systolic murmur absent and S1S2 is normal
Respiratory: Respiratory effort normal and Lungs clear to auscul.
GI: Soft
Neuro/Psych: AO x 3
Other: Skin (Warm, dry, intact)
Data Reviewed
-
Date of Service: December 04, 2023
EKG: Tracing Personally Visualized and interpreted (Telemetry: Sinus rhythm)
Echo: Report Reviewed by me (EF 45-50%)
Labs: Labs Reviewed by me
--- NOTE | 2023-12-04 10:08 | PN.CDI ---
CDI
- -
CDI:
Physician Documentation Request
Admit Date: 11/29/23 10:07
Dear Doctor Karishma,
Patient admitted for NSTEMI.
12/02 Hospitalist PN: 'HFmrEF...Echocardiogram in June 28 showing EF of 45 to 50%. -Patient not on diuretics, no signs of volume overload'
Clarify which of the following accurately represents the acuity of the HFmrEF. Possible options might include:
Chronic
Acute
Other
Use of terms such as suspected, likely, concern for, or probable (associated with a specific diagnosis that is being evaluated, monitored, or treated as if it exists) are acceptable and can be coded in the inpatient setting, when documented at the
time of discharge.
Thank you,
Tereza Ugalde RN, BSN
CDI Specialist
Available via [place] text
Please use your independent medical judgment in providing your response.
--- NOTE | 2023-12-04 10:11 | PN.CDI ---
CDI
- -
CDI:
Physician Documentation Request
Admit Date: 11/29/23 10:07
Dear Doctor Karishma,
Patient admitted for NSTEMI.
Laboratory Tests
11/29/23 11/30/23 12/01/23
07:55 02:41 05:17
Sodium 134 L 133 L 133 L
12/03/23
03:39
Sodium 134 L
Based on the above, could you clarify in the progress notes, the appropriate diagnosis, if significant, that supports the above abnormalities and additional evaluation, monitoring and/or treatment rendered:
Hyponatremia
Abnormal lab value insignificant
Other
Use of terms such as suspected, likely, concern for, or probable (associated with a specific diagnosis that is being evaluated, monitored, or treated as if it exists) are acceptable and can be coded in the inpatient setting, when documented at the
time of discharge.
Thank you,
Tereza Ugalde RN, BSN
CDI Specialist
Available via [place] text
Please use your independent medical judgment in providing your response.
[2023-12-04] MEDS: EFFIENT 10 MG PO (10:25)
--- NOTE | 2023-12-04 10:39 | CM ---
Addendum entered by Taty Wilson 12/04/23 13:45:
Telephone call to [facility], His Prasugrel is in and ready for pick-up.
Original Note:
Reviewed chart. Asked to check on co-pay for Jardiance 10 mg. Telephone call to [facility] to check on co-pay for Jardiance or . Farxiga. He is in the coverage gap. His Jardiance would be $146.64 a month and Farxiga would be $139.72 a
month. Reviewed co-pay with him. He states he can not afford the medications. Left message for doctor. Prior to admission he resides with his spouse in a two story home without any steps to enter. He has to go up a full flight of steps to get to
bedroom/full bathroom. He has a powder room on the first floor. Prior to admission he was independent with ambulation and adls. He does not have any DME in the home. He has a prescription plan and uses [facility]. Medical work-up in progress.
The discharge plan is to return home with his spouse when medically stable.
--- NOTE | 2023-12-04 10:48 | PTCARENOTE ---
received patient this am, patient feels he is ready to go home. monitor shows NSR with a first degree, VSS. ordered Jardiance, reached out to case management to obtain cost, patient cannot afford it, case management reached out to Dr. Agarwal.
[2023-12-04 10:49] LABS: Blood Urea Nitrogen 10 mg/dl (9-20); Carbon Dioxide 19 mmol/L (22-30); Chloride 103 mmol/L (98-107); Estimated Creatinine Clearance 106 ml/min; Glucose 149 mg/dl (70-99); Potassium 4.2 mmol/L (3.5-5.1); Sodium 132 mmol/L (135-145); eGFR > 60.00
--- NOTE | 2023-12-04 11:04 | W.PN.HOSP.TC ---
Addendum entered and electronically signed by Daniel Schwarz MD 12/04/23 17:07:
Chronic systolic congestive heart failure.
Hyponatremia.
Original Note:
Today's Communication/Plan
-
Discharge planning
Assessment / Plan
Assessment / Plan
Physical exam:
General: Well Developed, Well Nourished and No Apparent Distress
HEENT: Normocephalic, Atraumatic and Moist Mucous Membranes
Respiratory: Clear to Auscultation; Negative Wheezes, Rales or Rhonchi
Cardiac: Regular Rhythm and S1/S2
GI: Soft, Nontender and Nondistended
Musculoskeletal: No Clubbing, No Cyanosis and No Edema
Neuro: Awake, Alert and Oriented
Psych: Calm
A/P:
1. NSTEMI
ACS protocol
Cardiac cath x 2, RCA disease status post angioplasty but unable to stent
DAPT per cardiology
Yesterday discharge cancelled-he felt lightheaded and likely related to beta-blockers. Coreg changed to Toprol-XL. Cardiology wanted to add Jardiance but cost prohibitive. Plan to discharge today
2. Ischemic cardiomyopathy
HFmrEF
Left bundle branch block
-Echocardiogram in June 28 showing EF of 45 to 50%.
-Patient not on diuretics, no signs of volume overload
3. Hyperlipidemia
-maintain on Crestor home dose
4. Essential hypertension
-continue coreg with holding parameter
-Hold Entresto/Aldactone with need of contrast study. Renal function stable. Creatinine 0.6. Restart upon discharge
5. Hematuria
-episode of elaine blood in urine last night, in morning tea colored urine
-Likely with need of DAPT/Heparin drip
-Denies h/o of BPH/Bladder issues in the past
-Monitor for any signs of retention/recurrence and will need chopra catheter
6. Anemia
Likely dilutional
Repeated hemoglobin stable
lumbar spinal stenosis status post minimally invasive laminectomy
DVT PPX - scd
Full code
Anticipated Discharge: Today
Subjective/Interval History
-
Date of Service: December 04, 2023
Patient feels better today.
Objective Data
-
Labs:
Laboratory Results
12/04/23
08:28
WBC 8.3
Hgb 10.1 L
Hct 28.2 L
Plt Count 155
Sodium 132 L
Potassium 4.2
Chloride 103
Carbon Dioxide 19 L
BUN 10
Creatinine 0.6 L
Glucose 149 H
Calcium 9.0
Vital Signs:
Vital Signs
Temp Pulse Resp BP Pulse Ox
97.8 F 74 18 99/69 96
12/04/23 07:11 12/04/23 07:55 12/04/23 07:11 12/04/23 07:55 12/04/23 08:30
I&O
12/03/23 12/04/23 12/05/23
06:59 06:59 06:59
Intake Total 1668 / 1668 100 / 100
Output Total 250 / 250
Balance 1418 / 1418 100 / 100
[2023-12-04 11:28] VITALS: BP 102/64
--- NOTE | 2023-12-04 12:27 | PTCARENOTE ---
D/C instructions given to patient, verbalizes understanding. INT D/C'd, telemetry d/C'd, personal belongings packed and sent home with patient. D/C to home via wc accompanied by staff.
== END 2023-12-04 13:54 | disposition home or self-care (01) | DRG 324 ==
LOC: IVU 10:07
PROVIDERS: Internal Medicine Cardiovascular Disease; Physician Assistant; Student in an Organized Health Care Education/Training Program; ADMITTING PHYSICIAN Hospitalist; ATTENDING PHYSICIAN Hospitalist; CONSULT PHYSICIAN Internal Medicine; EMERGENCY PHYSICIAN Emergency Medicine; FAMILY PHYSICIAN Internal Medicine
PROC: 027034Z Dilation of Coronary Artery, One Artery with Drug-eluting Intraluminal Device, Percutaneous Approach (ICD-10-PCS; 2023-11-29)
PROC: 4A033BC Measurement of Arterial Pressure, Coronary, Percutaneous Approach (ICD-10-PCS; 2023-11-29)
PROC: 4A023N7 Measurement of Cardiac Sampling and Pressure, Left Heart, Percutaneous Approach (ICD-10-PCS; 2023-11-29)
PROC: B211YZZ Fluoroscopy of Multiple Coronary Arteries using Other Contrast (ICD-10-PCS; 2023-11-29)
PROC: 02703ZZ Dilation of Coronary Artery, One Artery, Percutaneous Approach (ICD-10-PCS; 2023-12-02)
PROC: 02F03ZZ Fragmentation in Coronary Artery, One Artery, Percutaneous Approach (ICD-10-PCS; 2023-12-02)
PROC: B240ZZ3 Ultrasonography of Single Coronary Artery, Intravascular (ICD-10-PCS; 2023-12-02)
DX: I21.4 Non-ST elevation (NSTEMI) myocardial infarction (principal); I50.22 Chronic systolic (congestive) heart failure; E87.1 Hypo-osmolality and hyponatremia; I25.110 Atherosclerotic heart disease of native coronary artery with unstable angina pectoris; I25.5 Ischemic cardiomyopathy; I44.7 Left bundle-branch block, unspecified; E78.00 Pure hypercholesterolemia, unspecified; I11.0 Hypertensive heart disease with heart failure; M48.061 Spinal stenosis, lumbar region without neurogenic claudication; D64.89 Other specified anemias; R31.9 Hematuria, unspecified; E66.9 Obesity, unspecified; Z68.29 Body mass index [BMI] 29.0-29.9, adult; Z95.5 Presence of coronary angioplasty implant and graft; Z88.5 Allergy status to narcotic agent; Z88.1 Allergy status to other antibiotic agents; Z87.891 Personal history of nicotine dependence; Z82.49 Family history of ischemic heart disease and other diseases of the circulatory system; Z79.899 Other long term (current) drug therapy; Z79.82 Long term (current) use of aspirin
CPT/HCPCS: 71046; 80048; 80053; 83036; 83690; 84484; 85025; 85027; 85347; 85379; 85730; 92920; 92978; 93005; 93306; 93458; 93571; 93572; 96365; 96366; 99285; C1725; C1753; C1760; C1769; C1874; C1887; C1894; C9600; J1327; Q9950; Q9967

== ENCOUNTER 2024-04-23 08:55 | Emergency (ER) | payer OTHER, SELFPAY ==
[2024-04-23 08:57] VITALS: BP 131/82
--- NOTE | 2024-04-23 09:15 | ED.SKININJ ---
HPI-Injury
General
Chief Complaint: Skin Problem
Source: patient
Exam Limitations: none
Time Seen by Provider: 04/23/24 09:01
History of Present Illness-Injury
Initial Injury comments:
78-year-old male presents complaining of redness to the anterior right jackson persistent since March 18 when he was scratched by his dog. Initially seen by the doctor thought to just be a wound no antibiotics were prescribed. He denies fevers or
chills. He is anticoagulated. No chest pain or shortness of breath. No other complaints at this time
Past History
Past History
ED Past Medical History: CAD, HTN, Hypercholesterolemia, OR and Other (Cardiomyopathy, IBS, cardiomyopathy, left frontal branch block)
ED Past Surgical History: Orthopedic and Other (Cardiac catheter 05/2013)
Social History
Tobacco: Former smoker
Alcohol: None
Drug: None
Family History
Family History: CAD
Phy Exam
Physical Exam
Physical Exam:
General: Well-appearing male no acute respiratory distress
Skin: Erythema noted to the anterior right jackson. There is a small raised area in the center of this erythema. This is slightly fluctuant. Slight amount of pressure provides a bloody return. Of note, patient states that he received some pus after
squeezing it this morning. The jackson itself is nontender otherwise. There is no lymphangitic streaking
Extremities: No cyanosis
Course
Vital Signs
Initial and Last Documented VS:
Initial Vital Signs
Temp Pulse Resp BP Pulse Ox
98.7 F 74 16 131/82 98
04/23/24 08:57 04/23/24 08:57 04/23/24 08:57 04/23/24 08:57 04/23/24 08:57
Last Documented Vital Signs
Temp Pulse Resp BP Pulse Ox
98.7 F 74 16 131/82 98
04/23/24 08:57 04/23/24 08:57 04/23/24 08:57 04/23/24 08:57 04/23/24 08:57
MDM/Problems Addressed
Differential Diagnosis Includes:
Erythema to the anterior right jackson concerning for potential cellulitis. No sign of drainable abscess at this time. There is a raised area of skin in the center of the erythema could be inflammatory in response to the cellulitis. Other skin
lesion such as a wart also consideration. Will give doxycycline to cover for cellulitis but advise that he follow-up with his master scheduler upon completion of the antibiotic to ensure resolution of the lesion in the center of the erythema. He is
nontoxic otherwise no indication for labs or admission. Stable for discharge
*Critical Care Note
Total Time (30-74mins, 75-104mins- exclusive of procedures): Not Applicable
ED Attending Note
-
Portions of this chart may have been created with voice recognition software.� Occasional wrong word or��sound alike� substitutions may have occurred due to the inherent limitations of voice recognition software.
Discharge Plan
Departure
Patient Disposition: Home (Routine Discharge)
Date of Disposition: 04/23/24
Time of Disposition: 09:20
Patient with high blood pressure during this ER visit?: No
Discharge Problem:
Cellulitis
Instructions: Cellulitis (Skin Infection), Adult (DC)
Prescriptions:
New
doxycycline hyclate 100 mg capsule
100 mg PO BID Qty: 14 0RF
No Action
spironolactone 25 MG tablet
25 mg PO DAILY
rosuvastatin [Crestor] 40 MG tablet
40 mg PO QPM
cholecalciferol (vitamin D3) 1,000 UNITS tablet
1,000 units PO DAILY
multivitamin with folic acid [Tab-A-Junie] 1 TABLET tablet
1 tab PO DAILY
aspirin 81 MG tablet,delayed release (DR/EC)
81 mg PO DAILY
acetaminophen [Tylenol] 325 mg Tablet
650 mg PO Q4HPRN PRN (Reason: mild pain)
tramadol 50 mg Tablet
50 mg PO BIDPRN PRN (Reason: moderate pains)
ascorbic acid (vitamin C) [Vitamin C] 500 mg Tablet
500 mg PO DAILY
Entresto 97-103 mg Tablet
1 tab PO BID
prasugrel HCl 10 mg Tablet
10 mg PO DAILY Qty: 90 3RF
metoprolol succinate 50 mg Tablet Extended Release 24 Hr
50 mg PO DAILY@2200 30 Days Qty: 30 0RF
Activity Restrictions/Additional Instructions:
Take antibiotics as directed. Return here for worsening symptoms otherwise follow-up with your master scheduler for recheck
Interventions
Interventions:
*Risk Screen - Suicide Last Done: 04/23/24 08:57
*Neglect/Abuse Screening Last Done: 04/23/24 08:57
Discharge Date and Time
Print Language: YAKUT
== END 2024-04-23 09:38 | disposition home or self-care (01) ==
LOC: EMR 08:55
PROVIDERS: EMERGENCY PHYSICIAN Emergency Medicine; FAMILY PHYSICIAN Internal Medicine
DX: L03.115 Cellulitis of right lower limb (principal); I25.10 Atherosclerotic heart disease of native coronary artery without angina pectoris; I10 Essential (primary) hypertension; E78.00 Pure hypercholesterolemia, unspecified; I25.2 Old myocardial infarction; I42.9 Cardiomyopathy, unspecified; K58.9 Irritable bowel syndrome, unspecified; Z82.49 Family history of ischemic heart disease and other diseases of the circulatory system; Z87.891 Personal history of nicotine dependence
CPT/HCPCS: 99282

== ENCOUNTER → 2024-09-15 09:44 | Outpatient (REF) | payer OTHER, SELFPAY | LOC: RAD 09:44 | PROVIDERS: ATTENDING PHYSICIAN Psychiatry & Neurology Neurology; FAMILY PHYSICIAN Hospitalist | DX: M25.551 Pain in right hip (principal) | CPT/HCPCS: 73522 ==

== ENCOUNTER → 2025-03-09 09:59 | Outpatient (REF) | payer OTHER, SELFPAY | LOC: HWRCS 09:59 | PROVIDERS: ATTENDING PHYSICIAN Internal Medicine Cardiovascular Disease; FAMILY PHYSICIAN Internal Medicine | DX: I10 Essential (primary) hypertension (principal); I25.5 Ischemic cardiomyopathy; I21.4 Non-ST elevation (NSTEMI) myocardial infarction | CPT/HCPCS: 93306 ==